=== PATIENT | male | born 1935 | race Caucasian/White ===

== ENCOUNTER 2016-12-17 15:52 | Inpatient (IN) | payer MEDICARE ==
[~2016-12-17] VITALS: Ht 170.2 cm; Wt 61.4 kg
[~2016-12-17 15:52] MED LIST: MULT-65 PO; SIMV10 PO
[2016-12-17 16:03] VITALS: BP 114/73; PULSE 117; RESP 16; TEMP 97.6; O2SAT 93
[2016-12-17] MEDS ORDERED: SLOW50TA PO (18:32)
[2016-12-17] MEDS ORDERED: SIMV10TA PO (18:32)
[2016-12-17] MEDS ORDERED: VITA1000 PO (18:32)
[2016-12-17] MEDS ORDERED: SENN1TAB PO (18:32)
[2016-12-17] MEDS ORDERED: AMLO5TAB2 PO (18:32)
[2016-12-17] MEDS ORDERED: MULTTAB67 PO (18:32)
[2016-12-17] MEDS ORDERED: ASPI81TA11 PO (18:32)
[2016-12-17] MEDS ORDERED: SODIUM CHLOR 0.9% 1000 ML INJ 1,000 ML IV SCH (18:42)
[2016-12-17] MEDS ORDERED: SODIUM CHLORIDE 0.9% FLUSH 10 ML FLUSH IV FLUSH PRN ×2 (18:45→23:00)
[2016-12-17] MEDS ORDERED: FAMOTIDINE 20 MG/2 ML VIAL IV PUSH ONE (18:45)
[2016-12-17] MEDS ORDERED: ONDANSETRON HCL 4 MG/2 ML VIAL IVP ONE (18:45)
--- NOTE | 2016-12-17 18:51 | PD ---
HPI Chief Complaint: GI Complaint Time Seen by Provider: 18:02 Travel History International Travel<30 days: No Contact w/Intl Traveler<30days: No Traveled to known affect area: No History of Present Illness HPI 81-year-old male complains of persistent nausea vomiting. Patient states the symptoms started yesterday. Patient denies abdominal pain. Patient states that he noticed some blood in the vomitus twice today. Patient denies any headache. Patient denies any chest pain or shortness of breath. Patient denies abdominal pain. Patient denies any dysuria or frequency. Patient denies any fever chills. Patient denies any back pain. Patient has history of throat cancer, status post radiation treatment. Patient also has history of abdominal aortic aneurysm repair, cataract surgery, hiatal hernia repair. 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) Diminished Hearing: No Endocrine: No Genitourinary: No Headaches: No Hypertension: Yes Immune Disorder: No Musculoskeletal: Yes Neurologic: No Psychiatric: No Reproductive: No Respiratory: No Immunizations Current: Yes Migraines: No Radiation Therapy: Yes Seizures: No Tetanus Vaccination: > 5 Years Influenza Vaccination: No Past Surgical History Abdominal Surgery: Yes (aaa hernia) AICD: No Arteriovenous Shunt: No Cardiac Surgery: No Ear Surgery: Yes (MELANOMA ON EAR) Endocrine Surgery: No Eye Surgery: Yes (cataracts) Genitourinary Surgery: Yes (plug in kidney) Gynecologic Surgery: No Insulin Pump: No Joint Replacement: Yes (KNEE) Neurologic Surgery: Yes (CERVICAL BONE SPUR REMOVED) Oral Surgery: No Pacemaker: No Thoracic Surgery: No Other Surgery: Yes (BACK SURGERY, NECK SURGERY hems) Social History Alcohol Use: No Tobacco Use: No (QUIT APR 2015) Substance Use: No Allergies-Medications (Allergen,Severity, Reaction): Coded Allergies: No Known Allergies (Unverified , 12/17/16) Reported Meds & Prescriptions Reported Meds & Active Scripts Active Reported Senna-Plus (Sennosides-Docusate Sodium) 8.6-50 Mg Tab 1 Tab PO DAILY Slow Release Iron ER (Ferrous Sulfate) 168 Mg (50 Mg Iron) Tab 50 Mg PO DAILY Vitamin D-1000 (Cholecalciferol) 1,000 Unit Tab 1,000 Units PO DAILY Aspirin EC (Aspirin) 81 Mg Tabdr 81 Mg PO DAILY Multiple Vitamin 1 Tab 1 Tab PO DAILY Amlodipine (Amlodipine Besylate) 5 Mg Tab 5 Mg PO DAILY Simvastatin 10 Mg Tab 10 Mg PO DAILY Review of Systems General / Constitutional: No: Fever Eyes: No: Visual changes HENT: No: Headaches Cardiovascular: No: Chest Pain or Discomfort Respiratory: No: Shortness of Breath Gastrointestinal: Positive: Nausea, Vomiting, No: Abdominal Pain Genitourinary: No: Dysuria Musculoskeletal: No: Pain Skin: No Rash Neurologic: No: Weakness Psychiatric: No: Depression Endocrine: No: Polydipsia Hematologic/Lymphatic: No: Easy Bruising Physical Exam Narrative GENERAL: Well-nourished, well-developed patient. SKIN: Focused skin assessment warm/dry. HEAD: Normocephalic. EYES: No scleral icterus. No injection or drainage. NECK: Supple, trachea midline. No JVD or lymphadenopathy. CARDIOVASCULAR: Regular rate and rhythm without murmurs, gallops, or rubs. RESPIRATORY: Breath sounds equal bilaterally. No accessory muscle use. GASTROINTESTINAL: Abdomen soft, non-tender, nondistended. MUSCULOSKELETAL: No cyanosis, or edema. BACK: Nontender without obvious deformity. No CVA tenderness. Neurologic exam: Patient is awake alert oriented 3. No obvious focal neurological deficit. Data Data Last Documented VS Vital Signs Date Time Temp Pulse Resp B/P (MAP) Pulse Ox O2 Delivery O2 Flow Rate FiO2 12/17/16 19:25 77 16 128/67 (87) 95 Room Air 12/17/16 16:03 97.6 Orders Orders Complete Blood Count With Diff (12/17/16 18:42) Comprehensive Metabolic Panel (12/17/16 18:42) Lipase (12/17/16 18:42) Prothrombin Time / Inr (Pt) (12/17/16 18:42) Act Partial Throm Time (Ptt) (12/17/16 18:42) Urinalysis - C+S If Indicated (12/17/16 18:42) Iv Access Insert/Monitor (12/17/16 18:42) Ecg Monitoring (12/17/16 18:42) Oximetry (10/18/17 18:42) Ondansetron Inj (Zofran Inj) (12/17/16 18:45) Sodium Chlor 0.9% 1000 Ml Inj (Ns 1000 M (12/17/16 18:42) Sodium Chloride 0.9% Flush (Ns Flush) (12/17/16 18:45) Electrocardiogram (12/17/16 18:42) Famotidine Inj (Pepcid Inj) (12/17/16 18:45) Sodium Chlor 0.9% 1000 Ml Inj (Ns 1000 M (12/17/16 20:45) Ct Abd/Pel W/O Iv Contrast (12/17/16 20:55) Urine Culture (12/17/16 21:10) Ceftriaxone Inj (Rocephin Inj) (12/17/16 22:00) Labs Laboratory Tests Test 12/17/16 18:10 12/17/16 21:10 White Blood Count 11.3 TH/MM3 Red Blood Count 4.21 MIL/MM3 Hemoglobin 11.7 GM/DL Hematocrit 35.9 % Mean Corpuscular Volume 85.1 FL Mean Corpuscular Hemoglobin 27.7 PG Mean Corpuscular Hemoglobin Concent 32.5 % Red Cell Distribution Width 14.2 % Platelet Count 335 TH/MM3 Mean Platelet Volume 8.3 FL Neutrophils (%) (Auto) 81.6 % Lymphocytes (%) (Auto) 11.5 % Monocytes (%) (Auto) 6.3 % Eosinophils (%) (Auto) 0.4 % Basophils (%) (Auto) 0.2 % Neutrophils # (Auto) 9.3 TH/MM3 Lymphocytes # (Auto) 1.3 TH/MM3 Monocytes # (Auto) 0.7 TH/MM3 Eosinophils # (Auto) 0.0 TH/MM3 Basophils # (Auto) 0.0 TH/MM3 CBC Comment DIFF FINAL Differential Comment Prothrombin Time 10.3 SEC Prothromb Time International Ratio 0.9 RATIO Activated Partial Thromboplast Time 25.5 SEC Blood Urea Nitrogen 24 MG/DL Creatinine 1.70 MG/DL Random Glucose 117 MG/DL Total Protein 8.6 GM/DL Albumin 3.2 GM/DL Calcium Level 12.6 MG/DL Alkaline Phosphatase 113 U/L Aspartate Amino Transf (AST/SGOT) 17 U/L Alanine Aminotransferase (ALT/SGPT) 18 U/L Total Bilirubin 0.4 MG/DL Sodium Level 138 MEQ/L Potassium Level 3.7 MEQ/L Chloride Level 97 MEQ/L Carbon Dioxide Level 32.0 MEQ/L Anion Gap 9 MEQ/L Estimat Glomerular Filtration Rate 39 ML/MIN Protein Corrected Calcium 11.6 MG/DL Lipase 75 U/L Urine Color YELLOW Urine Turbidity SLIGHT Urine pH 7.0 Urine Specific [place] 1.016 Urine Protein NEG mg/dL Urine Glucose (UA) NEG mg/dL Urine Ketones NEG mg/dL Urine Occult Blood NEG Urine Nitrite POS Urine Bilirubin NEG Urine Leukocyte Esterase MOD Urine RBC 0-3 /hpf Urine WBC 15-19 /hpf Urine WBC Clumps RARE Urine Squamous Epithelial Cells 0-5 /hpf Urine Bacteria MOD /hpf Microscopic Urinalysis Comment CULTURE INDICATED MDM Medical Decision Making Medical Screen Exam Complete: Yes Emergency Medical Condition: Yes Interpretation(s) 9:53 PM. CBC WBC 11.3. Hemoglobin 11.7 hematocrit 35.9. 81 neutrophil. BUN 24. Creatinine 1.7. GFR 39. Protein corrected calcium 11.6. UA positive for WBC and bacteria. 22:[address] scan abdomen and pelvis shows right lower lobe consolidation. No acute pathology in the abdomen. Differential Diagnosis Differential diagnosis including gastroenteritis, gastritis, PUD, pancreatitis, cholecystitis, colitis, UTI, pyelonephritis, nephrolithiasis, electrolyte imbalance, dehydration. Narrative Course 81-year-old male with persistent nausea vomiting for 2 days. Small amount of hematemesis emesis today. Normal saline solution 1 L IV bolus. Zofran 4 mg IV. Pepcid 20 mg IV. Rocephin 1 g IV. Zithromax 500 mg IV. Diagnosis Primary Impression: Pneumonia Qualified Codes: J18.1 - Lobar pneumonia, unspecified organism Additional Impressions: Acute kidney injury Hypercalcemia UTI (urinary tract infection) Qualified Codes: N30.00 - Acute cystitis without hematuria Admitting Information Admitting Physician Requests: Admit Matthew Monroe MD Dec 17, 2016 18:51
[2016-12-17 19:00] VITALS: O2SAT 95
[2016-12-17 19:12] LABS: AUTOMATED NEUTROPHIL # 9.3 TH/MM3 (1.8-7.7); BASOPHIL % 0.2 % (0.0-2.0); EOSINOPHIL % 0.4 % (0.0-4.0); HEMATOCRIT 35.9 % (39.0-51.0); HEMOGLOBIN 11.7 GM/DL (13.0-17.0); LYMPH % 11.5 % (9.0-44.0); LYMPHOCYTE # 1.3 TH/MM3 (1.0-4.8); MEAN CELL VOLUME 85.1 FL (80.0-100.0); MEAN CORPUSCULAR HEMOGLOBIN 27.7 PG (27.0-34.0); MEAN CORPUSCULAR HGB CONC 32.5 % (32.0-36.0); MEAN PLATELET VOLUME 8.3 FL (7.0-11.0); MONO % 6.3 % (0.0-8.0); MONOCYTE # 0.7 TH/MM3 (0-0.9); NEUT % 81.6 % (16.0-70.0); PLATELET COUNT 335 TH/MM3 (150-450); RED BLOOD COUNT 4.21 MIL/MM3 (4.50-5.90); RED CELL DISTRIBUTION WIDTH 14.2 % (11.6-17.2); WHITE BLOOD COUNT 11.3 TH/MM3 (4.0-11.0)
[2016-12-17 19:25] VITALS: BP 128/67; PULSE 77; RESP 16; O2SAT 95
[2016-12-17 20:11] LABS: INTERNATIONAL NORMALIZED RATIO 0.9 RATIO; PROTHROMBIN TIME - PATIENT 10.3 SEC (9.8-11.6)
[2016-12-17 20:25] VITALS: BP 129/74; PULSE 76; RESP 16; O2SAT 95
[2016-12-17 20:38] LABS: ALBUMIN 3.2 GM/DL (3.4-5.0); CREATININE 1.7 MG/DL (0.60-1.30); TOTAL BILIRUBIN ADULT 0.4 MG/DL (0.2-1.0); TOTAL PROTEIN 8.6 GM/DL (6.4-8.2)
[2016-12-17 20:41] LABS: CALCIUM-PROTEIN CORRECTED 11.6 MG/DL (8.5-10.1)
[2016-12-17 20:42] LABS: CALCIUM 12.6 MG/DL (8.5-10.1)
[2016-12-17] MEDS: SODIUM CHLOR 0.9% 1000 ML INJ 1,000 ML IV SCH (21:16)
[2016-12-17 21:35] LABS: BILIRUBIN, URINE NEG (NEG); BLOOD, URINE NEG (NEG); GLUCOSE,URINE NEG (NEG); KETONE, URINE NEG (NEG); NITRITE,URINE POS (NEG); URINE LEUKOCYTE ESTERASE MOD (NEG)
[2016-12-17 21:44] LABS: URINE COLOR YELLOW (YELLW/STRAW)
[2016-12-17 21:45] LABS: BACTERIA, URINE MOD /hpf; RBC, URINE 0-3 /hpf (0-3); SQUAMOUS EPITHELIAL CELL URINE 0-5 /hpf (0-5); WBC, URINE 15-19 /hpf (0-5); WHITE BLOOD CELL CLUMPS RARE
[2016-12-17] MEDS ORDERED: cefTRIAXone INJ 1,000 MG in SODIUM CHLORIDE 0.9% INJ 100 ML IV ONE (22:00)
--- NOTE | 2016-12-17 22:06 | RADRPT ---
EXAM DATE/TIME: 12/17/2016 21:28 [facility] COMPARISON: CT ABDOMEN & PELVIS W/O CONTRAST, July 17, 2015, 19:28. INDICATIONS : Abdominal pain, vomiting. ORAL CONTRAST: No oral contrast ingested. RADIATION DOSE: 8.35 CTDIvol (mGy) MEDICAL HISTORY : Hypertension. Aneurysm, abdominal. Hernia. SURGICAL HISTORY : Abdominal aortic aneurysm repair. Hernia repair. ENCOUNTER: Initial ACUITY: 1 day PAIN SCALE: 5/10 LOCATION: abdomen TECHNIQUE: Volumetric scanning of the abdomen and pelvis was performed. Using automated exposure control and ad justment of the mA and/or kV according to patient size, radiation dose was kept as low as reasonably achievable to obtain optimal diagnostic quality images. DICOM format image data is available electro nically for review and comparison. FINDINGS: Significant change relative to the prior examination Z. of endovascular repair of abdominal aortic an eurysm infrarenal extending into the common iliac artery stent placement. Patient also developed a de nse right lower lobe parenchymal infiltrate consolidated. Prior findings of hepatic cysts are again apprec iated with a normal gallbladder spleen and pancreas as well as bilateral kidneys other than stable fl uid density in the left infra-nephric space. 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 Uncomp licated cyst diverticuli of the sigmoid are noted. There is degenerative changes of the lower lumbar spine. CONCLUSION: There is a dense right lower lobe parenchymal consolidated infiltrate. Interrum endovascular stent abdominal aortic repair infrarenal extendi ng into the common iliac arteries. No evidence of leak. Other chronic findings as described above.. Ernesto Ramos MD on December 17, 2016 at 21:58 Board Certified Radiologist. This report was verified electronically.
[2016-12-17 22:45] VITALS: BP 128/68; PULSE 83; RESP 16; O2SAT 96
--- NOTE | 2016-12-17 22:50 | RADRPT ---
EXAM DATE/TIME: 12/17/2016 22:40 [facility] COMPARISON: No previous studies available for comparison. INDICATIONS : Short of breath. MEDICAL HISTORY : Hypertension. Aneurysm, abdominal. Hernia. SURGICAL HISTORY : Abdominal aortic aneurysm repair. Hernia repair. ENCOUNTER: Initial ACUITY: 1 day PAIN SCORE: 0/10 LOCATION: Bilateral chest FINDINGS: The heart, aorta, and pulmonary vascularity normal intact bony structures in clear left lung. There i s dense airspace disease alveolar change in the right lower lobe consistent with infiltrate pneumonia CONCLUSION: Consolidated infiltrate right lower lobe consistent with pneumonitis Ernesto Ramos MD on December 17, 2016 at 22:48 Board Certified Radiologist. This report was verified electronically.
[2016-12-17] MEDS ORDERED: NALOXONE HCL 0.4 MG/ML AMP IV PUSH PRN (23:00)
[2016-12-17 23:45] VITALS: BP 135/74; PULSE 83; RESP 16; TEMP 98.3; O2SAT 87
[2016-12-18] VITALS (8 sets, daily range): BP systolic 108–169; BP diastolic 62–81; PULSE 67–93; RESP 16–18; TEMP 96.3–98.3; O2SAT 94–98
[2016-12-18] MEDS: SODIUM CHLOR 0.9% 1000 ML INJ 1,000 ML IV SCH ×3 (06:12→21:23)
[2016-12-18 07:48] LABS: AUTOMATED NEUTROPHIL # 6.1 TH/MM3 (1.8-7.7); BASOPHIL % 0.3 % (0.0-2.0); EOSINOPHIL # 0.1 TH/MM3 (0-0.4); EOSINOPHIL % 1.6 % (0.0-4.0); HEMATOCRIT 32.2 % (39.0-51.0); HEMOGLOBIN 10.6 GM/DL (13.0-17.0); LYMPHOCYTE # 1.5 TH/MM3 (1.0-4.8); MEAN CORPUSCULAR HGB CONC 32.9 % (32.0-36.0); MEAN PLATELET VOLUME 7.9 FL (7.0-11.0); MONO % 10.6 % (0.0-8.0); MONOCYTE # 0.9 TH/MM3 (0-0.9); NEUT % 69.5 % (16.0-70.0); PLATELET COUNT 267 TH/MM3 (150-450); RED BLOOD COUNT 3.79 MIL/MM3 (4.50-5.90); RED CELL DISTRIBUTION WIDTH 14.4 % (11.6-17.2); WHITE BLOOD COUNT 8.6 TH/MM3 (4.0-11.0)
[2016-12-18 08:11] LABS: BICARBONATE 31.4 MEQ/L (21.0-32.0); CALCIUM 11.4 MG/DL (8.5-10.1); CREATININE 1.4 MG/DL (0.60-1.30)
[2016-12-18] MEDS: SODIUM CHLORIDE 0.9% FLUSH 10 ML FLUSH IV FLUSH SCH ×2 (09:00→21:00)
--- NOTE | 2016-12-18 10:22 | HHI.HP ---
[facility] R[facility] Cavaz[facility] MD Admission Diagnosis PNA and hypercalcemia Diagnoses: Chief Complaint: feeling weak Travel History International Travel<30 Days: No Contact w/Intl Traveler <30 Da: No Traveled to Known Affected Are: No History of Present Illness Poor historian. Does not like to speak much although he seems cognitively intact. 81 y/o WM admitted for PNA. Patient was in his usual state of health presumptively until yesterday at which point his progressive generalized weakness worsened prompting him to come to the emergency room. He has chronic intermittent N/V to which he does not elaborate further but does admit to new onset hematemesis yesterday. Says that he does vomit on a good day, reports that he felt substantially weaker overall yesterday and had noted some mild hematemesis, eventually decided come to the emergency room. Denies having any increased shortness of breath fevers chills. Chest x-ray which I independent only reviewed shows a prominent infiltrate in the right middle lobe which is suggestive of pneumonia. Has hypercalcemia noted. Review of Systems Except as stated in HPI: all other systems reviewed are Neg Unable to obtain review of systems since the patient is not willing to speak much. Past Family Social History Past Medical History Throat cancer, AAA s/p repair w/ stenting Past Surgical History Throat cancer Allergies: Coded Allergies: gabapentin (Verified Allergy, Intermediate, 12/26/16) STATED ALLERY (EXTREME ABD PAIN) Family History Cancer in brother, unspecified, patient does not elaborate Social History Smoking for over 70 years per patient Physical Exam Vital Signs Vital Signs Date Time Temp Pulse Resp B/P (MAP) Pulse Ox O2 Delivery O2 Flow Rate FiO2 12/18/16 08:00 96.6 70 18 143/69 (93) 94 12/18/16 04:00 98.3 85 16 147/67 (93) 95 12/18/16 01:00 67 12/18/16 00:35 12/18/16 00:00 98.0 75 16 108/62 (77) 98 12/17/16 23:45 98.3 83 16 135/74 (94) 87 Room Air 12/17/16 22:45 83 16 128/68 (88) 96 Room Air 12/17/16 20:25 76 16 129/74 (92) 95 Room Air 12/17/16 19:25 77 16 128/67 (87) 95 Room Air 12/17/16 19:00 95 Room Air 12/17/16 16:03 97.6 117 16 114/73 (87) 93 Physical Exam VS: Reviewed, afebrile GENERAL: Elderly white male thin, lying in bed, sleeping, easily awoken SKIN: Warm and dry. EYES: No scleral icterus. No injection or drainage. ENT: No nasal bleeding or discharge. Mucous membranes pink and moist. hoarse voice CARDIOVASCULAR: Regular rate and rhythm. no murmurs RESPIRATORY: No accessory muscle use. Slightly diminished breath sounds bilaterally, very faint crackles on right side, coarse sounds on the left GASTROINTESTINAL: Abdomen soft, non-tender, nondistended. Hepatic and splenic margins not palpable. Extremities: No clubbing, cyanosis, or edema. No obvious deformities. MUSCULOSKELETAL: Extremities without clubbing, cyanosis, or edema. No obvious deformities NEUROLOGICAL: Awake and alert. No obvious cranial nerve deficits. No facial droop nor slurred speech noted. PSYCHIATRIC: Appropriate mood and affect; insight and judgment normal. Laboratory Laboratory Tests Test 12/17/16 18:10 12/17/16 21:10 12/18/16 07:20 White Blood Count 11.3 8.6 Red Blood Count 4.21 3.79 Hemoglobin 11.7 10.6 Hematocrit 35.9 32.2 Mean Corpuscular Volume 85.1 85.0 Mean Corpuscular Hemoglobin 27.7 28.0 Mean Corpuscular Hemoglobin Concent 32.5 32.9 Red Cell Distribution Width 14.2 14.4 Platelet Count 335 267 Mean Platelet Volume 8.3 7.9 Neutrophils (%) (Auto) 81.6 69.5 Lymphocytes (%) (Auto) 11.5 18.0 Monocytes (%) (Auto) 6.3 10.6 Eosinophils (%) (Auto) 0.4 1.6 Basophils (%) (Auto) 0.2 0.3 Neutrophils # (Auto) 9.3 6.1 Lymphocytes # (Auto) 1.3 1.5 Monocytes # (Auto) 0.7 0.9 Eosinophils # (Auto) 0.0 0.1 Basophils # (Auto) 0.0 0.0 CBC Comment DIFF FINAL DIFF FINAL Differential Comment Prothrombin Time 10.3 Prothromb Time International Ratio 0.9 Activated Partial Thromboplast Time 25.5 Blood Urea Nitrogen 24 19 Creatinine 1.70 1.40 Random Glucose 117 79 Total Protein 8.6 Albumin 3.2 Calcium Level 12.6 11.4 Alkaline Phosphatase 113 Aspartate Amino Transf (AST/SGOT) 17 Alanine Aminotransferase (ALT/SGPT) 18 Total Bilirubin 0.4 Sodium Level 138 147 Potassium Level 3.7 3.3 Chloride Level 97 108 Carbon Dioxide Level 32.0 31.4 Anion Gap 9 8 Estimat Glomerular Filtration Rate 39 48 Protein Corrected Calcium 11.6 Lipase 75 Urine Color YELLOW Urine Turbidity SLIGHT Urine pH 7.0 Urine Specific [place] 1.016 Urine Protein NEG Urine Glucose (UA) NEG Urine Ketones NEG Urine Occult Blood NEG Urine Nitrite POS Urine Bilirubin NEG Urine Leukocyte Esterase MOD Urine RBC 0-3 Urine WBC 15-19 Urine WBC Clumps RARE Urine Squamous Epithelial Cells 0-5 Urine Bacteria MOD Microscopic Urinalysis Comment CULTURE INDICATED Date/Time Source Procedure Growth Status 12/17/16 21:10 Urine Clean Catch Urine Culture Pending Received Result Diagram: 12/18/16 0720 12/18/16 07 Imaging I independently reviewed chest x-ray which shows a right sided infiltrate Caprini VTE Risk Assessment Caprini VTE Risk Assessment: Mod/High Risk (score >= 2) VTE Pharm Contraindication: Active bleeding Caprini Risk Assessment Model Point Value = 1 Point Value = 2 Point Value = 3 Point Value = 5 Age 41-60 Minor surgery BMI > 25 kg/m2 Swollen legs Varicose veins or History of unexplained or recurrent spontaneous Oral contraceptives or hormone replacement Sepsis (< 1 month) Serious lung disease, including pneumonia (< 1 month) Abnormal pulmonary function Acute myocardial infarction Congestive heart failure (< 1 month) History of inflammatory bowel disease Medical patient at bed rest Age 61-74 Arthroscopic surgery Major open surgery (> 45 min) Laparoscopic surgery (> 45 min) Malignancy Confined to bed (> 72 hours) Immobilizing plaster cast Central venous access Age >= 75 History of VTE Family history of VTE Factor V Leiden Prothrombin [id number] Lupus anticoagulant Anticardiolipin antibodies Elevated serum homocysteine Heparin-induced thrombocytopenia Other congenital or acquired thrombophilia Stroke (< 1 month) Elective arthroplasty Hip, pelvis, or leg fracture Acute spinal cord injury (< 1 month) Prophylaxis Regimen Total Risk Factor Score Risk Level Prophylaxis Regimen 0-1 Low Early ambulation 2 Moderate Order ONE of the following: *Sequential Compression Device (SCD) *Heparin 5000 units SQ BID 3-4 Higher Order ONE of the following medications: *Heparin 5000 units SQ TID *Enoxaparin/Lovenox 40 mg SQ daily (WT < 150 kg, CrCl > 30 mL/min) *Enoxaparin/Lovenox 30 mg SQ daily (WT < 150 kg, CrCl > 10-29 mL/min) *Enoxaparin/Lovenox 30 mg SQ BID (WT < 150 kg, CrCl > 30 mL/min) AND/OR *Sequential Compression Device (SCD) 5 or more Highest Order ONE of the following medications: *Heparin 5000 units SQ TID (Preferred with Epidurals) *Enoxaparin/Lovenox 40 mg SQ daily (WT < 150 kg, CrCl > 30 mL/min) *Enoxaparin/Lovenox 30 mg SQ daily (WT < 150 kg, CrCl > 10-29 mL/min) *Enoxaparin/Lovenox 30 mg SQ BID (WT < 150 kg, CrCl > 30 mL/min) AND *Sequential Compression Device (SCD) Assessment and Plan Assessment and Plan Patient admitted for pneumonia right middle lobe Right lower lobe pneumonia - community acquired vs aspiration from N/V? Continue Rocephin and Zithromax for now - may consider strep pneumo and legionella antigen if clinically not improved by tomorrow and may swap for zithromax for clindamycin Intermittent Nausea, vomiting - ? caused by PNA - recurrent, treat with IV antiemetics. I independently reviewed the CT film and noted mod stool retention; report shows no acute cause noted otherwise; LFTs unremarkable - IV fluids Hematemesis - suspect Melissa-Tracey tear due to frequent nausea vomiting, consult GI for possible EGD if warranted, patient has been nothing by mouth clinically since last night. starting h2 flakita IV, ppi in short stock. clinically stable at this time. h/h stable at 10 today. cbc in am. DIAZ - 2/2 n/v and dehydration - IVFs, stop fluids if resolved by am BMP Hypercalcemia, corrected seems to accurately reflect this - will obtain PTH and vitamin D - Holding home vitamin D for now until lab results Hypertension - Continue home amlodipine Hyperlipidemia - Continue home simvastatin Iron deficiency - Holding home iron to minimize interference with EGD visualization tomorrow DVT: The score enough to get pharmacotherapy anticoagulation but due to bleed, we'll hold off, continue SCDs until bleed issue is resolved Physician Certification 2 Midnight Certification Type: Admission for Inpatient Services Order for Inpatient Services The services are ordered in accordance with Medicare regulations or non- Medicare payer requirements, as applicable. In the case of services not specified as inpatient-only, they are appropriately provided as inpatient services in accordance with the 2-midnight benchmark. Estimated LOS (days): 2 2 days is the estimated time the patient will need to remain in the hospital, assuming treatment plan goals are met and no additional complications. Post-Hospital Plan: Not yet determined Hunter Meraz MD Dec 18, 2016 10:22
[2016-12-18] MEDS ORDERED: FAMOTIDINE 20 MG/2 ML VIAL IV PUSH SCH (11:00)
--- NOTE | 2016-12-18 11:33 | EKG ---
Date Performed: 12/17/2016 Time Performed: 19:17:07 PTAGE: 81 years EKG: Sinus rhythm NORMAL ECG Compared to prior tracing no significant change PREVIOUS TRACING : 09/21/2012 06.44 DOCTOR: Damon Ridley Interpretating Date/Time 12/18/2016 11:29:02
[2016-12-18] MEDS: AZITHROMYCIN INJ 500 MG in SODIUM CHLOR 0.9% 250 ML INJ 250 ML IV SCH (11:35)
--- NOTE | 2016-12-18 17:45 | MB ---
cc: PHILIPP HICKS MD, RICHARD D. MD DATE OF CONSULTATION 12/18/[address] Riki Cavazos REASON FOR CONSULTATION Nausea, vomiting, anemia, possible hematemesis. HISTORY OF PRESENT ILLNESS Mr. Jordan is an 81-year-old gentleman I basically admitted with progressive weakness, lethargy, some nausea, vomiting. He was found to have pneumonia on admission. GI service has been consulted for workup of hematemesis and nausea and vomiting. Most of the history is obtained from his at the bedside. He has had no nausea, vomiting or hematemesis since hospital admission. His labs are relatively stable. He denies any previous history of GI related issues. Last colonoscopy was reported about 10 years ago. PAST MEDICAL HISTORY 1. History of throat cancer, 2. Aortic aneurysm with repair and stent placement. PAST SURGICAL HISTORY 1. Throat cancer, 2. Colonoscopy 10 years ago. Never had an EGD in the past. ALLERGIES None documented FAMILY HISTORY Nonspecific SOCIAL HISTORY The patient is a smoker for over 70 years. PHYSICAL EXAMINATION GENERAL: A well-nourished man in no apparent distress. VITAL SIGNS: Stable. HEAD/NECK: Anicteric sclerae. CHEST: Bilateral air entry with rales. ABDOMEN: Soft, nontender. No hepatosplenomegaly. Bowel sounds are present. ACID POLYMERIZATION OPERATOR: Exam is nonfocal. RECTAL: Deferred at this time LABORATORY DATA Creatinine of 1.4. Liver functions are normal. INR 0.9, hemoglobin 10.6. IMAGING STUDIES CT of the abdomen and pelvis reveals right lower lobe pneumonia, previous evidence of aortic aneurysm surgery. IMPRESSION Nausea, vomiting, hematemesis. RECOMMENDATIONS Liquid diet tonight, n.p.o. after midnight. Continue antibiotics as ordered. Pepcid 10 mg b.i.d. as ordered. EGD is planned for tomorrow morning. This has been discussed with the patient's and the nurse. Thank you for this referral. MD RODNEY Hayden/ /5:28 PM /5:32 PM
--- NOTE | 2016-12-18 17:45 | MB ---
cc: PHILIPP HICKS MD, RICHARD D. MD DATE OF CONSULTATION 12/18/[address] Riki Cavazos REASON FOR CONSULTATION Nausea, vomiting, anemia, possible hematemesis. HISTORY OF PRESENT ILLNESS Mr. Jordan is an 81-year-old gentleman I basically admitted with progressive weakness, lethargy, some nausea, vomiting. He was found to have pneumonia on admission. GI service has been consulted for workup of hematemesis and nausea and vomiting. Most of the history is obtained from his at the bedside. He has had no nausea, vomiting or hematemesis since hospital admission. His labs are relatively stable. He denies any previous history of GI related issues. Last colonoscopy was reported about 10 years ago. PAST MEDICAL HISTORY 1. History of throat cancer, 2. Aortic aneurysm with repair and stent placement. PAST SURGICAL HISTORY 1. Throat cancer, 2. Colonoscopy 10 years ago. Never had an EGD in the past. ALLERGIES None documented FAMILY HISTORY Nonspecific SOCIAL HISTORY The patient is a smoker for over 70 years. PHYSICAL EXAMINATION GENERAL: A well-nourished man in no apparent distress. VITAL SIGNS: Stable. HEAD/NECK: Anicteric sclerae. CHEST: Bilateral air entry with rales. ABDOMEN: Soft, nontender. No hepatosplenomegaly. Bowel sounds are present. VICE PRESIDENT OF COMPLIANCE: Exam is nonfocal. RECTAL: Deferred at this time LABORATORY DATA Creatinine of 1.4. Liver functions are normal. INR 0.9, hemoglobin 10.6. IMAGING STUDIES CT of the abdomen and pelvis reveals right lower lobe pneumonia, previous evidence of aortic aneurysm surgery. IMPRESSION Nausea, vomiting, hematemesis. RECOMMENDATIONS Liquid diet tonight, n.p.o. after midnight. Continue antibiotics as ordered. Pepcid 10 mg b.i.d. as ordered. EGD is planned for tomorrow morning. This has been discussed with the patient's and the nurse. Thank you for this referral. MD RODNEY Hayden/ /5:28 PM /5:32 PM
[2016-12-18] MEDS: MULTIVITAMIN TAB PO SCH (18:30)
[2016-12-18] MEDS ORDERED: cefTRIAXone INJ 1,000 MG in SODIUM CHLORIDE 0.9% INJ 100 ML IV ONE (22:00)
[2016-12-18] MEDS: FAMOTIDINE 20 MG/2 ML VIAL IV PUSH SCH (23:14)
[2016-12-19] VITALS: BP 182/88; PULSE 97; RESP 18; TEMP 97.9; O2SAT 95
[2016-12-19 05:53] LABS: AUTOMATED NEUTROPHIL # 6.2 TH/MM3 (1.8-7.7); BASOPHIL % 0.3 % (0.0-2.0); EOSINOPHIL # 0.1 TH/MM3 (0-0.4); HEMOGLOBIN 10.7 GM/DL (13.0-17.0); LYMPH % 19.6 % (9.0-44.0); LYMPHOCYTE # 1.7 TH/MM3 (1.0-4.8); MEAN CELL VOLUME 84.8 FL (80.0-100.0); MEAN CORPUSCULAR HEMOGLOBIN 27.6 PG (27.0-34.0); MEAN CORPUSCULAR HGB CONC 32.5 % (32.0-36.0); MEAN PLATELET VOLUME 7.9 FL (7.0-11.0); MONO % 10.4 % (0.0-8.0); MONOCYTE # 0.9 TH/MM3 (0-0.9); NEUT % 68.7 % (16.0-70.0); PLATELET COUNT 265 TH/MM3 (150-450); RED BLOOD COUNT 3.89 MIL/MM3 (4.50-5.90); RED CELL DISTRIBUTION WIDTH 14.4 % (11.6-17.2); WHITE BLOOD COUNT 8.9 TH/MM3 (4.0-11.0)
[2016-12-19 05:54] LABS: BICARBONATE 28.7 MEQ/L (21.0-32.0); CALCIUM 11.4 MG/DL (8.5-10.1); CREATININE 1.3 MG/DL (0.60-1.30)
[2016-12-19] MEDS: POTASSIUM CHLOR 20 MEQ PREMIX 100 ML IV SCH ×3 (06:22→10:27)
[2016-12-19 08:00] VITALS: BP 161/99; RESP 18; TEMP 96.9
[2016-12-19] MEDS: SODIUM CHLORIDE 0.9% FLUSH 10 ML FLUSH IV FLUSH SCH ×2 (08:39→21:00)
[2016-12-19] MEDS ORDERED: cefTRIAXone INJ 1,000 MG in SODIUM CHLORIDE 0.9% INJ 100 ML IV SCH (09:00)
[2016-12-19] MEDS: FAMOTIDINE 20 MG/2 ML VIAL IV PUSH SCH ×2 (10:26→23:30)
[2016-12-19 12:00] VITALS: BP 152/80; PULSE 91; RESP 20; TEMP 97.1; O2SAT 97
--- NOTE | 2016-12-19 13:00 | HHI.PR ---
Subjective Remarks Due to patient's dementia he is not a reliable historian. Patient was slightly agitated this morning trying to get out of bed., Now that his is at bedside. Patient has not had any further vomiting since being in the hospital. Prior that his states that he was vomiting for 5 days straight. She denies cough or fever. Objective Vitals Vital Signs Date Time Temp Pulse Resp B/P (MAP) Pulse Ox O2 Delivery O2 Flow Rate FiO2 12/19/16 08:00 96.9 18 161/99 (119) 12/19/16 00:00 97.9 97 18 182/88 (119) 95 12/18/16 20:00 96.3 93 18 136/68 (90) 96 12/18/16 20:00 86 12/18/16 16:00 97.8 86 18 140/81 (100) 95 12/18/16 13:23 75 I/O 12/18/16 12/18/16 12/18/16 12/19/16 12/19/16 12/19/16 07:00 15:00 23:00 07:00 15:00 23:00 Intake Total 598 ml 360 ml 480 ml Output Total 400 ml 2300 ml Balance 198 ml -1940 ml 480 ml Intake Oral 360 ml 480 ml IV Total 598 ml Output Urine Total 400 ml 2300 ml # Voids 3 2 # Bowel Movements 0 0 Result Diagram: 12/19/1651412/19/16514 Objective Remarks GENERAL: Well-nourished, well-developed elderly male patient. Pleasantly confused. SKIN: Warm and dry. HEAD: Normocephalic. EYES: No scleral icterus. No injection or drainage. NECK: Supple, trachea midline. No JVD or lymphadenopathy. CARDIOVASCULAR: Regular rate and rhythm without murmurs, gallops, or rubs. RESPIRATORY: Breath sounds equal bilaterally. No accessory muscle use. GASTROINTESTINAL: Abdomen soft, non-tender, nondistended. EXTREMITIES: No cyanosis, or edema. NEUROLOGICAL: Awake, alert, and oriented to self. Non-focal. A/P Problem List: (1) Pneumonia ICD Code: J18.9 - Pneumonia, unspecified organism Status: Acute (2) Hematemesis ICD Code: K92.0 - Hematemesis (3) Intractable nausea and vomiting ICD Code: R11.2 - Nausea with vomiting, unspecified (4) Hypokalemia ICD Code: E87.6 - Hypokalemia (5) Acute kidney injury ICD Code: N17.9 - Acute kidney failure, unspecified Status: Acute (6) UTI (urinary tract infection) ICD Code: N39.0 - Urinary tract infection, site not specified Status: Acute (7) Hypercalcemia ICD Code: E83.52 - Hypercalcemia Status: Acute Assessment and Plan -Intractable nausea and vomiting, followed by hematemesis. Hemoglobin was slight downturn from 11-10.. Etiology of the nausea and vomiting not clear. He may have developed a Melissa-Tracey tear. Gastroenterology is consulted and plans for EGD today. Vomiting has resolved. -Right lower lobe dense consolidation, community-acquired pneumonia. Continue Rocephin and Zithromax. He is stable on room air, but at risk for decompensation given his advanced age, dementia, multiple medical comorbidities.. -Severe hypercalcemia - likely exacerbated by volume depletion. Continue gentle IV fluids normal saline at 60 mL per hour. Follow-up PTH and PTH related peptide. Follow BMP. -Acute kidney injury, resolved. -Severe hypokalemia. Replete in IV 40 mEq over 4 hours today. Check magnesium level. Repeat BMP in the morning. -Hypertension. Continue Norvasc. 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 -Dementia. Continue reorientation. -UTI, continue Rocephin and follow up urine culture. -DVT prophylaxis SCDs. Patient requires inpatient treatment due to ongoing electrolyte abnormalities requiring IV fluid and IV replacement, workup for hematemesis to include EGD which cannot be safely done in the outpatient setting given his intractable vomiting, also treatment of community-acquired pneumonia with high risk of decompensation in this elderly patient with multiple medical comorbidities. Discussed with patient's at bedside. Problem Qualifiers (1) Pneumonia: Qualified Codes: J18.1 - Lobar pneumonia, unspecified organism (2) UTI (urinary tract infection): Qualified Codes: N30.00 - Acute cystitis without hematuria Laura Gomez MD Dec 19, 2016 13:00
[2016-12-19] MEDS ORDERED: PROPOFOL 200 MG/20 ML AMP IV PUSH ONE (13:48)
--- NOTE | 2016-12-19 13:49 | GIPROC ---
[facility] [address] [place] [address], [id number] EGD PROCEDURE REPORT EXAM DATE: 12/19/2016 PATIENT NAME: Joseph Jordan MR #: [id number] BIRTHDATE: 1935 ATTENDING: Maya Su MD ORDER #: [id number] ACCOUNT RESOLUTION ANALYST: Samia Leyva and [place] STATUS: inpatient INDICATIONS: The patient is a 81 yr old male here for an EGD due to nausea, vomiting , hematemesis PROCEDURE PERFORMED: EGD w/ biopsy MEDICATIONS: None and Per Anesthesia. TOPICAL ANESTHETIC: none CONSENT: The patient understands the risks and benefits of the procedure and understands that these risks include, but are not limited to: sedation, allergic reaction, infection, perforation and/or bleeding. Alternative means of evaluation and treatment include, among others: physical exam, x-rays, and/or surgical intervention. The patient elects to proceed with this endoscopic procedure. medical equipment was checked for proper function. Hand hygiene and appropriate measures for infection prevention was taken. After the risks, benefits and alternatives of the procedure were thoroughly explained, Informed consent was verified, confirmed and timeout was successfully executed by the treatment team. The patient was anesthetized with topical anesthesia and the Pentax EG-[id number] endoscope was introduced through the mouth and advanced to the second portion of the duodenum. Retroflexed views revealed a hiatal hernia The gastroscope was then slowly withdrawn and removed. Duodenitis second portion-biopsy gastritis antrum-biopsy esophagitis distal esophagus -biopsy. ADVERSE EVENTS: There were no complications. IMPRESSIONS: 1. Duodenitis second portion-biopsy gastritis antrum-biopsy esophagitis distal esophagus -biopsy 2. Retroflexed views revealed a hiatal hernia RECOMMENDATIONS: 1. Await biopsy results. Biopsy results will not be ready for 7-10 days. If you don't hear from us in two weeks, call our office for biopsy results. 2. Anti-reflux regimen 3. Continue PPI 4. Full liquid diet PATIENT CONDITION: stable DISPOSITION: Inpatient REPEAT EXAM: Return 1 year EGD Maya Su MD eSigned: Maya Su MD 12/19/2016 1:49 PM cc:
--- NOTE | 2016-12-19 13:49 | GIPROC ---
[facility] [address] [place] [address], [id number] EGD PROCEDURE REPORT EXAM DATE: 12/19/2016 PATIENT NAME: Joseph Jordan MR #: [id number] BIRTHDATE: 1935 ATTENDING: Maya Su MD ORDER #: [id number] FLIGHT OPERATION COORDINATOR: Samia Leyva and [place] STATUS: inpatient INDICATIONS: The patient is a 81 yr old male here for an EGD due to nausea, vomiting , hematemesis PROCEDURE PERFORMED: EGD w/ biopsy MEDICATIONS: None and Per Anesthesia. TOPICAL ANESTHETIC: none CONSENT: The patient understands the risks and benefits of the procedure and understands that these risks include, but are not limited to: sedation, allergic reaction, infection, perforation and/or bleeding. Alternative means of evaluation and treatment include, among others: physical exam, x-rays, and/or surgical intervention. The patient elects to proceed with this endoscopic procedure. medical equipment was checked for proper function. Hand hygiene and appropriate measures for infection prevention was taken. After the risks, benefits and alternatives of the procedure were thoroughly explained, Informed consent was verified, confirmed and timeout was successfully executed by the treatment team. The patient was anesthetized with topical anesthesia and the Pentax EG-[id number] endoscope was introduced through the mouth and advanced to the second portion of the duodenum. Retroflexed views revealed a hiatal hernia The gastroscope was then slowly withdrawn and removed. Duodenitis second portion-biopsy gastritis antrum-biopsy esophagitis distal esophagus -biopsy. ADVERSE EVENTS: There were no complications. IMPRESSIONS: 1. Duodenitis second portion-biopsy gastritis antrum-biopsy esophagitis distal esophagus -biopsy 2. Retroflexed views revealed a hiatal hernia RECOMMENDATIONS: 1. Await biopsy results. Biopsy results will not be ready for 7-10 days. If you don't hear from us in two weeks, call our office for biopsy results. 2. Anti-reflux regimen 3. Continue PPI 4. Full liquid diet PATIENT CONDITION: stable DISPOSITION: Inpatient REPEAT EXAM: Return 1 year EGD Maya Su MD eSigned: Maya Su MD 12/19/2016 1:49 PM cc:
--- NOTE | 2016-12-19 13:49 | GIPROC ---
[facility] [address] [place] [address], [id number] EGD PROCEDURE REPORT EXAM DATE: 12/19/2016 PATIENT NAME: Joseph Jordan MR #: [id number] BIRTHDATE: 1935 ATTENDING: Maya Su MD ORDER #: [id number] INTEGRATION ARCHITECT: Samia Leyva and [place] STATUS: inpatient INDICATIONS: The patient is a 81 yr old male here for an EGD due to nausea, vomiting , hematemesis PROCEDURE PERFORMED: EGD w/ biopsy MEDICATIONS: None and Per Anesthesia. TOPICAL ANESTHETIC: none CONSENT: The patient understands the risks and benefits of the procedure and understands that these risks include, but are not limited to: sedation, allergic reaction, infection, perforation and/or bleeding. Alternative means of evaluation and treatment include, among others: physical exam, x-rays, and/or surgical intervention. The patient elects to proceed with this endoscopic procedure. medical equipment was checked for proper function. Hand hygiene and appropriate measures for infection prevention was taken. After the risks, benefits and alternatives of the procedure were thoroughly explained, Informed consent was verified, confirmed and timeout was successfully executed by the treatment team. The patient was anesthetized with topical anesthesia and the Pentax EG-[id number] endoscope was introduced through the mouth and advanced to the second portion of the duodenum. Retroflexed views revealed a hiatal hernia The gastroscope was then slowly withdrawn and removed. Duodenitis second portion-biopsy gastritis antrum-biopsy esophagitis distal esophagus -biopsy. ADVERSE EVENTS: There were no complications. IMPRESSIONS: 1. Duodenitis second portion-biopsy gastritis antrum-biopsy esophagitis distal esophagus -biopsy 2. Retroflexed views revealed a hiatal hernia RECOMMENDATIONS: 1. Await biopsy results. Biopsy results will not be ready for 7-10 days. If you don't hear from us in two weeks, call our office for biopsy results. 2. Anti-reflux regimen 3. Continue PPI 4. Full liquid diet PATIENT CONDITION: stable DISPOSITION: Inpatient REPEAT EXAM: Return 1 year EGD Maya Su MD eSigned: Maya Su MD 12/19/2016 1:49 PM cc:
[2016-12-19] MEDS: AZITHROMYCIN INJ 500 MG in SODIUM CHLOR 0.9% 250 ML INJ 250 ML IV SCH (15:07)
[2016-12-19 16:00] VITALS: BP 166/98; PULSE 20; RESP 20; TEMP 96.5; O2SAT 96
[2016-12-19 20:00] VITALS: BP 127/83; PULSE 94; RESP 20; TEMP 96.3; O2SAT 95
[2016-12-19] MEDS: cefTRIAXone INJ 1,000 MG in SODIUM CHLORIDE 0.9% INJ 100 ML IV SCH (21:34)
[2016-12-19] MEDS ORDERED: BISACODYL 10 MG SUPP RECTAL ONE (23:15)
[2016-12-19] MEDS: DOCUSATE SODIUM 100 MG CAP PO SCH (23:31)
[2016-12-19 23:48] VITALS: BP 140/80; PULSE 100; RESP 23; TEMP 98.2; O2SAT 94
[2016-12-20 07:46] LABS: BASOPHIL % 0.1 % (0.0-2.0); EOSINOPHIL # 0.1 TH/MM3 (0-0.4); EOSINOPHIL % 0.6 % (0.0-4.0); HEMATOCRIT 32.3 % (39.0-51.0); HEMOGLOBIN 10.7 GM/DL (13.0-17.0); LYMPH % 13.1 % (9.0-44.0); LYMPHOCYTE # 1.4 TH/MM3 (1.0-4.8); MEAN CELL VOLUME 85.9 FL (80.0-100.0); MEAN CORPUSCULAR HEMOGLOBIN 28.5 PG (27.0-34.0); MEAN CORPUSCULAR HGB CONC 33.2 % (32.0-36.0); MEAN PLATELET VOLUME 8.3 FL (7.0-11.0); MONO % 9.1 % (0.0-8.0); NEUT % 77.1 % (16.0-70.0); PLATELET COUNT 259 TH/MM3 (150-450); RED BLOOD COUNT 3.76 MIL/MM3 (4.50-5.90); RED CELL DISTRIBUTION WIDTH 14.9 % (11.6-17.2); WHITE BLOOD COUNT 10.5 TH/MM3 (4.0-11.0)
[2016-12-20 07:57] LABS: BICARBONATE 26.8 MEQ/L (21.0-32.0); CALCIUM 11.4 MG/DL (8.5-10.1); MAGNESIUM 1.7 MG/DL (1.5-2.5)
[2016-12-20 08:00] VITALS: BP 179/96; PULSE 98; RESP 20; TEMP 97.4; O2SAT 97
[2016-12-20 08:01] LABS: CREATININE 1.1 MG/DL (0.60-1.30)
[2016-12-20] MEDS: amLODIPine BESYLATE 5 MG TAB PO SCH (09:00)
[2016-12-20] MEDS: PRAVASTATIN SOD 20 MG TAB PO SCH (09:00)
[2016-12-20] MEDS: MULTIVITAMIN TAB PO SCH (09:00)
[2016-12-20] MEDS: SODIUM CHLORIDE 0.9% FLUSH 10 ML FLUSH IV FLUSH SCH (09:00)
[2016-12-20] MEDS: DOCUSATE SODIUM 100 MG CAP PO SCH (09:00)
[2016-12-20] MEDS ORDERED: POTASSIUM CHLORIDE 25 MEQ EFFERVESCENT TAB PO ONE (11:10)
[2016-12-20] MEDS: AZITHROMYCIN INJ 500 MG in SODIUM CHLOR 0.9% 250 ML INJ 250 ML IV SCH (11:49)
[2016-12-20] MEDS: FAMOTIDINE 20 MG/2 ML VIAL IV PUSH SCH ×2 (11:50→22:52)
[2016-12-20 12:00] VITALS: BP 163/85; PULSE 103; RESP 18; TEMP 98.7; O2SAT 95
--- NOTE | 2016-12-20 12:05 | HHI.GIFU ---
Subjective Remarks comfortable in bed no new complaints denies any N/V pain Objective Vitals I&O Vital Signs Date Time Temp Pulse Resp B/P (MAP) Pulse Ox O2 Delivery O2 Flow Rate FiO2 12/20/16 08:00 97.4 98 20 179/96 (123) 97 12/19/16 23:48 98.2 100 23 140/80 (100) 94 12/19/16 20:00 96.3 94 20 127/83 (98) 95 12/19/16 16:00 96.5 20 20 166/98 (120) 96 12/19/16 14:15 152/81 (104) 100 12/19/16 14:05 99 15 152/87 (108) 100 12/19/16 13:55 98.1 99 14 155/80 (105) 100 12/19/16 12:30 97.2 95 20 166/99 (121) 97 I/O 12/19/16 12/19/16 12/19/16 12/20/16 12/20/16 12/20/16 07:00 15:00 23:00 07:00 15:00 23:00 Intake Total 480 ml 700 ml Output Total 2 ml Balance 480 ml 700 ml -2 ml Intake Oral 480 ml 400 ml IV Total 200 ml Other 100 ml Output Urine Total 2 ml # Voids 2 3 5 # Bowel Movements 0 1 1 2 Laboratory Laboratory Tests Test 12/20/16 06:45 White Blood Count 10.5 Red Blood Count 3.76 Hemoglobin 10.7 Hematocrit 32.3 Mean Corpuscular Volume 85.9 Mean Corpuscular Hemoglobin 28.5 Mean Corpuscular Hemoglobin Concent 33.2 Red Cell Distribution Width 14.9 Platelet Count 259 Mean Platelet Volume 8.3 Neutrophils (%) (Auto) 77.1 Lymphocytes (%) (Auto) 13.1 Monocytes (%) (Auto) 9.1 Eosinophils (%) (Auto) 0.6 Basophils (%) (Auto) 0.1 Neutrophils # (Auto) 8.0 Lymphocytes # (Auto) 1.4 Monocytes # (Auto) 1.0 Eosinophils # (Auto) 0.1 Basophils # (Auto) 0.0 CBC Comment DIFF FINAL Differential Comment Blood Urea Nitrogen 12 Creatinine 1.10 Random Glucose 101 Calcium Level 11.4 Magnesium Level 1.7 Sodium Level 141 Potassium Level 3.2 Chloride Level 106 Carbon Dioxide Level 26.8 Anion Gap 8 Estimat Glomerular Filtration Rate 64 Date/Time Source Procedure Growth Status 12/17/16 21:10 Urine Clean Catch Urine Culture - Final 50-100,000 CFU/ML MIXED GRAM POSITIVE... Complete Imaging Last Impressions Chest X-Ray 12/17/162236 Signed Impressions: Service Date/Time: Saturday, December 17, 2016 22:40 - CONCLUSION: Consolidated infiltrate right lower lobe consistent with pneumonitis Ernesto Ramos MD Abdomen/Pelvis CT 12/17/162054 Signed Impressions: Service Date/Time: Saturday, December 17, 2016 21:28 - CONCLUSION: There is a dense right lower lobe parenchymal consolidated infiltrate. Interrum endovascular stent abdominal aortic repair infrarenal extending into the common iliac arteries. No evidence of leak. Other chronic findings as described above.. Ernesto Ramos MD Physical Exam HEENT: normocephalic; atraumatic; no jaundice. Throat is clear. NECK: Neck is supple CHEST: Chest is clear to auscultation and percussion. CARDIAC: Regular rate and rhythm with no murmur gallop or rubs. ABDOMEN: Soft, nondistended, nontender; no hepatosplenomegaly; bowel sounds are present in all four quadrants. EXTREMITIES: No clubbing, cyanosis, or edema. SKIN: Normal; no rash; no jaundice. MARKETING SUPPORT ASSISTANT: No focal deficits; alert Assessment and Plan Plan N/V,hematemesisresolved on EGD esophagitis,gastritis, and duodenitis cont PPI avoid NSAIDs and ASA advance diet as tolerated f/u with GI post DC we will sign off Matthew Plata MD Dec 20, 2016 12:05
--- NOTE | 2016-12-20 12:38 | HHI.PR ---
Subjective Remarks The patient was agitated this morning, trying to get out of bed and demanding that his ,. Patient's is not bedside and the patient is calm and cooperative. Patient states he feels "lousy." Denies dyspnea or cough. Status post EGD yesterday. He is tolerating liquid diet. Objective Vitals Vital Signs Date Time Temp Pulse Resp B/P (MAP) Pulse Ox O2 Delivery O2 Flow Rate FiO2 12/20/16 12:00 98.7 103 18 163/85 (111) 95 12/20/16 08:00 97.4 98 20 179/96 (123) 97 12/19/16 23:48 98.2 100 23 140/80 (100) 94 12/19/16 20:00 96.3 94 20 127/83 (98) 95 12/19/16 16:00 96.5 20 20 166/98 (120) 96 12/19/16 14:15 152/81 (104) 100 12/19/16 14:05 99 15 152/87 (108) 100 12/19/16 13:55 98.1 99 14 155/80 (105) 100 I/O 12/19/16 12/19/16 12/19/16 12/20/16 12/20/16 12/20/16 07:00 15:00 23:00 07:00 15:00 23:00 Intake Total 480 ml 700 ml Output Total 2 ml Balance 480 ml 700 ml -2 ml Intake Oral 480 ml 400 ml IV Total 200 ml Other 100 ml Output Urine Total 2 ml # Voids 2 3 5 # Bowel Movements 0 1 1 2 Result Diagram: 12/20/16 0645 12/20/16644 Objective Remarks GENERAL: Well-nourished, well-developed elderly male patient. Pleasantly confused. SKIN: Warm and dry. HEAD: Normocephalic. EYES: No scleral icterus. No injection or drainage. NECK: Supple, trachea midline. No JVD or lymphadenopathy. CARDIOVASCULAR: Regular rate and rhythm without murmurs, gallops, or rubs. RESPIRATORY: Breath sounds equal bilaterally. No accessory muscle use. GASTROINTESTINAL: Abdomen soft, non-tender, nondistended. EXTREMITIES: No cyanosis, or edema. NEUROLOGICAL: Awake, alert, and oriented to self. Non-focal. A/P Problem List: (1) Pneumonia ICD Code: J18.9 - Pneumonia, unspecified organism Status: Acute (2) Hematemesis ICD Code: K92.0 - Hematemesis (3) Intractable nausea and vomiting ICD Code: R11.2 - Nausea with vomiting, unspecified (4) Hypokalemia ICD Code: E87.6 - Hypokalemia (5) Acute kidney injury ICD Code: N17.9 - Acute kidney failure, unspecified Status: Acute (6) UTI (urinary tract infection) ICD Code: N39.0 - Urinary tract infection, site not specified Status: Acute (7) Hypercalcemia ICD Code: E83.52 - Hypercalcemia Status: Acute Assessment and Plan -Right lower lobe dense consolidation, community-acquired pneumonia. Continue Rocephin and Zithromax. He is stable on room air, but at risk for decompensation given his advanced age, dementia, multiple medical comorbidities.. -Intractable nausea and vomiting, followed by hematemesis. Hemoglobin was slight downturn from 11-10.. Etiology of the nausea and vomiting not clear, but has now resolved. He is status post EGD yesterday showing duodenitis, esophagitis, gastritis. He does take Aleve and patient's was counseled he should avoid NSAIDs. Continue PPI. -Severe hypercalcemia -improved. Was likely exacerbated by volume depletion. PTH level is actually low. Continue gentle IV fluids normal saline at 60 mL per hour. Follow-up PTH related peptide. Additionally I will check TSH, ionized calcium, vitamin D levels, vitamin A. Follow BMP. Additionally will order a CT chest with IV contrast to better evaluate the pneumonia and rule out mass. Patient does have history of throat cancer in remission. -Acute kidney injury, resolved. -Severe hypokalemia. Improving. Mag level within normal limits. Continue repletion. Repeat BMP in the morning. -Hypertension. Continue Norvasc. 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 -Dementia. Continue reorientation. -UTI, continue Rocephin and follow up urine culture. -DVT prophylaxis SCDs. Patient requires inpatient treatment due to ongoing electrolyte abnormalities requiring IV fluid and IV replacement, workup for hematemesis to include EGD which cannot be safely done in the outpatient setting given his intractable vomiting, also treatment of community-acquired pneumonia with high risk of decompensation in this elderly patient with multiple medical comorbidities. Discussed with patient's at bedside. Problem Qualifiers (1) Pneumonia: Qualified Codes: J18.1 - Lobar pneumonia, unspecified organism (2) UTI (urinary tract infection): Qualified Codes: N30.00 - Acute cystitis without hematuria Laura Gomez MD Dec 20, 2016 12:38
[2016-12-20] MEDS ORDERED: IOHEXOL 350 MG/ML 10 ML VIAL (for RAD DIAG) IVCONTRAST ONE (15:14)
[2016-12-20 15:15] LABS: PHOSPHORUS 1.6 MG/DL (2.5-4.9)
[2016-12-20 16:00] VITALS: BP 140/82; PULSE 91; RESP 20; TEMP 99.6; O2SAT 94
--- NOTE | 2016-12-20 16:05 | RADRPT ---
EXAM DATE/TIME: 12/20/2016 14:58 [facility] COMPARISON: No previous studies available for comparison. INDICATIONS : Right middle lobe infiltrate. IV CONTRAST: 70 cc Omnipaque 350 (iohexol) IV RADIATION DOSE: 6.92 CTDIvol (mGy) MEDICAL HISTORY : Carcinoma, oral cavity. SURGICAL HISTORY : Abdominal aortic aneurysm repair. ENCOUNTER: Initial ACUITY: 2 days PAIN SCALE: 0/10 LOCATION: chest TECHNIQUE: Volumetric scanning of the chest was performed. Using automated exposure control and adjustment of t he mA and/or kV according to patient size, radiation dose was kept as low as reasonably achievable to obtain optimal diagnostic quality images. DICOM format image data is available electronically for review and comparison. Follow-up recommendations for detected pulmonary nodules are based at a minimum on nodule size and pa tient risk factors according to Fleischner Society Guidelines. FINDINGS: There is a mass in the right lobe measuring 6.8 cm in diameter with some surrounding atelectasis and consolidation. Mass appears to have an endobronchial component in the right lower lobe. There is mild to moderate emphysema at the lung apices. There is an enlarged 1.6 cm subcarinal lymph node and 1.2 cm precarinal lymph node characteristic of rachel metastatic disease. No pleural or pericardial effusion. There is a circumscribed low-attenuation 4 cm lesion right lobe l iver and 1.3 cm lesion left lobe liver most characteristic of hepatic cysts. No acute bony abnormalit ies. CONCLUSION: 1. 6.8 cm mass in right lower lobe with endobronchial component and surrounding consolidation and ate lectasis. Enlarged subcarinal and precarinal lymph nodes. 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 No effusions. Mass would be amenable to transth oracic needle biopsy. Gary Nolasco MD on December 20, 2016 at 15:55 Board Certified Radiologist. This report was verified electronically.
[2016-12-20] MEDS: SODIUM CHLOR 0.9% 1000 ML INJ 1,000 ML IV SCH ×2 (17:31)
[2016-12-20 20:00] VITALS: BP 124/73; PULSE 118; RESP 22; TEMP 99.7; O2SAT 100
[2016-12-20] MEDS: cefTRIAXone INJ 1,000 MG in SODIUM CHLORIDE 0.9% INJ 100 ML IV SCH (22:52)
[2016-12-21] VITALS (7 sets, daily range): BP systolic 104–167; BP diastolic 66–95; PULSE 71–104; RESP 16–20; TEMP 97.9–98.7; O2SAT 96–98
[2016-12-21 08:33] LABS: CALCIUM 10.8 MG/DL (8.5-10.1)
[2016-12-21 08:34] LABS: BICARBONATE 25.6 MEQ/L (21.0-32.0)
[2016-12-21 08:37] LABS: CREATININE 1.1 MG/DL (0.60-1.30)
[2016-12-21] MEDS: SODIUM CHLORIDE 0.9% FLUSH 10 ML FLUSH IV FLUSH SCH ×2 (09:00→20:43)
[2016-12-21] MEDS: DOCUSATE SODIUM 100 MG CAP PO SCH ×2 (09:00→20:43)
[2016-12-21] MEDS: SODIUM CHLOR 0.9% 1000 ML INJ 1,000 ML IV SCH (10:08)
[2016-12-21] MEDS: MULTIVITAMIN TAB PO SCH (10:08)
[2016-12-21] MEDS: amLODIPine BESYLATE 5 MG TAB PO SCH (10:08)
[2016-12-21] MEDS: PRAVASTATIN SOD 20 MG TAB PO SCH (10:08)
[2016-12-21] MEDS: AZITHROMYCIN INJ 500 MG in SODIUM CHLOR 0.9% 250 ML INJ 250 ML IV SCH (10:08)
[2016-12-21] MEDS: FAMOTIDINE 20 MG/2 ML VIAL IV PUSH SCH (10:10)
[2016-12-21] MEDS: ACETAMINOPHEN 325 MG TAB PO PRN ×2 (10:37→14:31)
[2016-12-21] MEDS ORDERED: POTASSIUM CHLORIDE 20 MEQ CONTROLLED RELEASE TAB PO SCH (13:00)
--- NOTE | 2016-12-21 13:13 | HHI.PR ---
Subjective Remarks Patient is having pain in his rectum that is worse when he sits on his butt. Having loose stools. Objective Vitals Vital Signs Date Time Temp Pulse Resp B/P (MAP) Pulse Ox O2 Delivery O2 Flow Rate FiO2 12/21/16 12:02 104 12/21/16 11:45 97.9 84 16 140/81 (100) 97 12/21/16 08:00 97.9 84 16 167/95 (119) 97 12/21/16 00:02 98.2 71 18 119/81 (94) 98 12/20/16 20:00 99.7 118 22 124/73 (90) 100 12/20/16 16:00 99.6 91 20 140/82 (101) 94 I/O 12/20/16 12/20/16 12/20/16 12/21/16 12/21/16 12/21/16 07:00 15:00 23:00 07:00 15:00 23:00 Intake Total 1390 ml 880 ml Output Total 2 ml Balance -2 ml 1390 ml 880 ml Intake Oral 1140 ml IV Total 250 ml 880 ml Output Urine Total 2 ml # Voids 3 # Bowel Movements 2 5 8 Result Diagram: 12/20/16 0645 12/21/16 0653 Objective Remarks GENERAL: Well-nourished, well-developed elderly male patient. Pleasantly confused. SKIN: Warm and dry. HEAD: Normocephalic. EYES: No scleral icterus. No injection or drainage. NECK: Supple, trachea midline. No JVD or lymphadenopathy. CARDIOVASCULAR: Regular rate and rhythm without murmurs, gallops, or rubs. RESPIRATORY: Breath sounds equal bilaterally. No accessory muscle use. GASTROINTESTINAL: Abdomen soft, non-tender, nondistended. EXTREMITIES: No cyanosis, or edema. NEUROLOGICAL: Awake, alert, and oriented to self. Non-focal. A/P Problem List: (1) Pneumonia ICD Code: J18.9 - Pneumonia, unspecified organism Status: Acute (2) Hematemesis ICD Code: K92.0 - Hematemesis (3) Intractable nausea and vomiting ICD Code: R11.2 - Nausea with vomiting, unspecified (4) Hypokalemia ICD Code: E87.6 - Hypokalemia (5) Acute kidney injury ICD Code: N17.9 - Acute kidney failure, unspecified Status: Acute (6) UTI (urinary tract infection) ICD Code: N39.0 - Urinary tract infection, site not specified Status: Acute (7) Hypercalcemia ICD Code: E83.52 - Hypercalcemia Status: Acute (8) Mass of right lung ICD Code: R91.8 - Other nonspecific abnormal finding of lung field Assessment and Plan -Right lower lobe dense consolidation, postobstructive pneumonia; chest CT yesterday and it shows a 6.8 cm lung mass with endobronchial component and surrounding consolidation and atelectasis with enlarged subcarinal and precarinal lymph nodes most consistent with a primary lung malignancy with mediastinal rachel metastasis. Will order CT biopsy tomorrow, consult pulmonology. Continue Rocephin and Zithromax. He is stable on room air, but at risk for decompensation given his advanced age, dementia, multiple medical comorbidities.. -Intractable nausea and vomiting, followed by hematemesis. Hemoglobin was slight downturn from 11-10.. Etiology of the nausea and vomiting not clear, possibly gastroenteritis, but has now resolved. He is status post EGD yesterday showing duodenitis, esophagitis, gastritis. He does take Aleve and patient's was counseled he should avoid NSAIDs. Continue PPI. -Severe hypercalcemia -improved. Probably due to the lung cancer. PTH level is actually low. Continue gentle IV fluids normal saline at 60 mL per hour. Follow-up PTH related peptide. -Acute kidney injury, resolved. -Hypophosphatemia. Start K-Phos. -Severe hypokalemia. Improving. Mag level within normal limits. Continue repletion. Repeat BMP in the morning. -Hypertension. Continue Norvasc. 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 -Dementia. Continue reorientation. -UTI, continue Rocephin, urine culture with 50-100,000 coliform units of mixed gram-positive however he is symptomatic with dysuria. -DVT prophylaxis SCDs. Patient requires inpatient treatment due to ongoing electrolyte abnormalities requiring IV fluid and IV replacement, workup for lung mass and hematemesis to include EGD which cannot be safely done in the outpatient setting given his intractable vomiting, also treatment of community-acquired pneumonia with high risk of decompensation in this elderly patient with multiple medical comorbidities. Discussed with patient's at bedside. Problem Qualifiers (1) Pneumonia: Qualified Codes: J18.1 - Lobar pneumonia, unspecified organism (2) UTI (urinary tract infection): Qualified Codes: N30.00 - Acute cystitis without hematuria Laura Gomez MD Dec 21, 2016 13:13
[2016-12-21] MEDS: SIMETHICONE 80 MG CHEWABLE TAB CHEW ONE ×2 (13:15→16:05)
[2016-12-21] MEDS ORDERED: SIMETHICONE 80 MG CHEWABLE TAB CHEW PRN (13:15)
[2016-12-21] MEDS: PANTOPRAZOLE SOD 40 MG DELAYED RELEASE TAB PO SCH (14:27)
[2016-12-21] MEDS: POTASSIUM PHOSPHATE MONOBASIC 500 MG TAB PO SCH ×2 (14:28→20:43)
[2016-12-21] MEDS ORDERED: POTASSIUM CHLORIDE 10 MEQ CONTROLLED RELEASE TAB PO ONE (14:30)
--- NOTE | 2016-12-21 16:38 | MB ---
cc: Eliana CRADOSO M.D. DATE OF CONSULTATION 12/21/2016 HISTORY Mr. Jordan is an 81-year-old white male admitted for nausea, vomiting and suspected pneumonia. He has been ill for about 2 weeks with intermittent nausea and vomiting, loss of appetite and a cough with some purulent sputum and occasional blood streaking of the sputum. No significant hemoptysis. On presentation to the emergency room he had a chest x-ray which revealed right midlung infiltrate and then a CT scan yesterday which revealed a 6.8 cm mass in the right lower lobe with consolidation and mediastinal adenopathy. Radiologist commented that it would be amenable to transthoracic biopsy so he has been scheduled for that for tomorrow morning. The patient's nausea and vomiting has resolved. He was endoscoped by GI and was found to have esophagitis, gastritis and duodenitis. His diet has been resumed and he did eat a normal lunch today. 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 Grimaldo as recently as September was apparently negative for recurrence. He was a heavy prior smoker of about 70 pack-years, quit smoking when the laryngeal cancer was identified. He denies shortness of breath. There has been weight loss and loss of appetite. No notable fever. is at the bedside and confirms this because the patient does have some memory loss, probably mild dementia. PAST MEDICAL HISTORY 1. AAA repair with stenting. 2. Prior cataract surgery. 3. Hernia repair. 4. Left knee replacement in 2007. ALLERGIES None known. MEDICATIONS Were reviewed in the EMR. 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 , living with his . Occasional alcohol but not to excess. FAMILY HISTORY Positive for cancer. REVIEW OF SYSTEMS As noted above. PHYSICAL EXAMINATION GENERAL: Thin, white male in no distress. VITAL SIGNS: Afebrile , pulse is 80-90, respirations are 18, blood pressure is 104/60 and saturation is 95% on room air. HEENT: Sclerae anicteric. Mucous membranes are moist. NECK: No adenopathy in the neck, supraclavicular region. CHEST: Diminished but clear. No congestion or wheezes. No rhonchi. CARDIOVASCULAR: Regular rhythm. No harsh murmur. ABDOMEN: Soft, nontender. EXTREMITIES: No peripheral edema, cyanosis or clubbing. LABORATORY DATA White count is 10,000, hemoglobin is 10, platelet count is normal. INR is normal. BUN and creatinine 11 and 1.1. Mild elevation in calcium at 10.8. DISCUSSION Mr. Jordan presents with nausea and vomiting, weight loss and loss of appetite, but he has a large mass in his right lower lobe. Probable malignancy. He is scheduled for a percutaneous biopsy tomorrow, we will await the reports of that. He was placed on antibiotics on presentation, those can be continued for the time being. And although he has been a heavy prior smoker he is having no problems with shortness of breath or hypoxemia. Further diagnostic and/or therapeutic intervention will depend on the results of this biopsy. R. MD ARNOLD Beard/KK /3:50 PM /4:27 PM
[2016-12-21] MEDS: cefTRIAXone INJ 1,000 MG in SODIUM CHLORIDE 0.9% INJ 100 ML IV SCH (20:42)
[2016-12-21] MEDS: POTASSIUM CHLORIDE 10 MEQ CONTROLLED RELEASE TAB PO SCH (20:44)
[2016-12-22] VITALS (7 sets, daily range): BP systolic 129–140; BP diastolic 76–92; PULSE 70–110; RESP 14–20; TEMP 96.9–98.6; O2SAT 96–99
[2016-12-22] MEDS: SODIUM CHLOR 0.9% 1000 ML INJ 1,000 ML IV SCH (03:43)
[2016-12-22 06:11] LABS: BICARBONATE 28.4 MEQ/L (21.0-32.0); CALCIUM 10.3 MG/DL (8.5-10.1); CREATININE 1.1 MG/DL (0.60-1.30)
[2016-12-22] MEDS: SODIUM CHLORIDE 0.9% FLUSH 10 ML FLUSH IV FLUSH SCH ×2 (07:41→21:03)
[2016-12-22] MEDS: PANTOPRAZOLE SOD 40 MG DELAYED RELEASE TAB PO SCH (08:37)
[2016-12-22] MEDS: MULTIVITAMIN TAB PO SCH (08:37)
[2016-12-22] MEDS: DOCUSATE SODIUM 100 MG CAP PO SCH ×2 (08:37→21:04)
[2016-12-22] MEDS: POTASSIUM CHLORIDE 10 MEQ CONTROLLED RELEASE TAB PO SCH ×2 (08:38→21:05)
[2016-12-22] MEDS: POTASSIUM PHOSPHATE MONOBASIC 500 MG TAB PO SCH ×2 (08:38→21:04)
[2016-12-22] MEDS: PRAVASTATIN SOD 20 MG TAB PO SCH (08:38)
[2016-12-22] MEDS: amLODIPine BESYLATE 5 MG TAB PO SCH (08:38)
[2016-12-22] MEDS: ACETAMINOPHEN 325 MG TAB PO PRN (08:42)
--- NOTE | 2016-12-22 09:35 | HHI.PR ---
Subjective Remarks Patient is still complaining of pain in his paroxysmal morning. He had a bowel movement this morning. Afebrile. No shortness of breath. Objective Vitals Vital Signs Date Time Temp Pulse Resp B/P (MAP) Pulse Ox O2 Delivery O2 Flow Rate FiO2 12/22/16 04:05 98.6 70 14 140/76 (97) 96 12/22/16 00:55 76 129/77 (94) 12/21/16 20:34 98.7 87 16 135/66 (89) 97 12/21/16 20:00 94 12/21/16 15:11 97.9 103 20 104/68 (80) 96 12/21/16 12:02 104 12/21/16 11:45 97.9 84 16 140/81 (100) 97 I/O 12/21/16 12/21/16 12/21/16 12/22/16 12/22/16 12/22/16 07:00 15:00 23:00 07:00 15:00 23:00 Intake Total 880 ml 1159 ml 640 ml 692 ml Balance 880 ml 1159 ml 640 ml 692 ml Intake Oral 720 ml 540 ml IV Total 880 ml 439 ml 100 ml 692 ml Bladder Scan Volume Amount 321 ml 25 ml # Voids 3 2 3 # Bowel Movements 8 3 2 2 Result Diagram: 12/20/16 0645 12/22/16 0517 Objective Remarks GENERAL: Well-nourished, well-developed elderly male patient. Pleasantly confused. SKIN: Warm and dry. Minimal perianal erythema. HEAD: Normocephalic. EYES: No scleral icterus. No injection or drainage. NECK: Supple, trachea midline. No JVD or lymphadenopathy. CARDIOVASCULAR: Regular rate and rhythm without murmurs, gallops, or rubs. RESPIRATORY: Breath sounds equal bilaterally. No accessory muscle use. GASTROINTESTINAL: Abdomen soft, non-tender, nondistended. EXTREMITIES: No cyanosis, or edema. NEUROLOGICAL: Awake, alert, and oriented to self. Non-focal. A/P Problem List: (1) Pneumonia ICD Code: J18.9 - Pneumonia, unspecified organism Status: Acute (2) Hematemesis ICD Code: K92.0 - Hematemesis (3) Intractable nausea and vomiting ICD Code: R11.2 - Nausea with vomiting, unspecified (4) Hypokalemia ICD Code: E87.6 - Hypokalemia (5) Acute kidney injury ICD Code: N17.9 - Acute kidney failure, unspecified Status: Acute (6) UTI (urinary tract infection) ICD Code: N39.0 - Urinary tract infection, site not specified Status: Acute (7) Hypercalcemia ICD Code: E83.52 - Hypercalcemia Status: Acute (8) Mass of right lung ICD Code: R91.8 - Other nonspecific abnormal finding of lung field Assessment and Plan -Right lower lobe dense consolidation, postobstructive pneumonia; chest CT showed a 6.8 cm lung mass with endobronchial component and surrounding consolidation and atelectasis with enlarged subcarinal and precarinal lymph nodes most consistent with a primary lung malignancy with mediastinal rachel metastasis. For CT biopsy today, appreciate pulmonology following. Will start Levaquin by mouth and change to Rocephin and Zithromax. He is stable on room air. -Intractable nausea and vomiting, followed by hematemesis. Hemoglobin was slight downturn from 11-10.. Etiology of the nausea and vomiting not clear, possibly gastroenteritis, but has now resolved. He is status post EGD \showing duodenitis, esophagitis, gastritis. He does take Aleve and patient's was counseled he should avoid NSAIDs. Continue PPI. -Severe hypercalcemia -improved. Probably due to the lung cancer. PTH level is actually low. Follow-up PTH related peptide. DC IV fluids. -Acute kidney injury, resolved. -Hypophosphatemia. Continue K-Phos. -Severe hypokalemia. Improving. Mag level within normal limits. Continue repletion. Repeat BMP in the morning. -Hypertension. Continue Norvasc. 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 -Dementia. Continue reorientation. -UTI, continue Rocephin, urine culture with 50-100,000 coliform units of mixed gram-positive however he is symptomatic with dysuria. -DVT prophylaxis SCDs. Problem Qualifiers (1) Pneumonia: Qualified Codes: J18.1 - Lobar pneumonia, unspecified organism (2) UTI (urinary tract infection): Qualified Codes: N30.00 - Acute cystitis without hematuria Laura Gomez MD Dec 22, 2016 09:35
[2016-12-22] MEDS ORDERED: LEVOFLOXACIN 750 MG TAB PO SCH (09:45)
[2016-12-22] MEDS: PHENAZOPYRIDINE HCL 200 MG TAB PO SCH ×2 (14:00→21:05)
[2016-12-23] VITALS (14 sets, daily range): BP systolic 102–154; BP diastolic 50–83; PULSE 76–104; RESP 16–20; TEMP 96.7–98.5; O2SAT 94–100
[2016-12-23] MEDS: ACETAMINOPHEN 325 MG TAB PO PRN (01:30)
[2016-12-23] MEDS: PHENAZOPYRIDINE HCL 200 MG TAB PO SCH ×3 (06:14→21:24)
[2016-12-23 06:47] LABS: BICARBONATE 26.7 MEQ/L (21.0-32.0); CALCIUM 10.4 MG/DL (8.5-10.1); MAGNESIUM 1.5 MG/DL (1.5-2.5)
[2016-12-23 06:51] LABS: CREATININE 1.2 MG/DL (0.60-1.30); PHOSPHORUS 2.1 MG/DL (2.5-4.9)
--- NOTE | 2016-12-23 08:30 | HHI.GIFU ---
Subjective Remarks Patient somewhat of a poor historian reports having had episodes of rectal pain localized to the rectum with no exacerbating or alleviating factors the patient has been having regular bowel movements the pain only lasts a few minutes The nurse reports that his stools have been black and tarry Objective Vitals I&O Vital Signs Date Time Temp Pulse Resp B/P (MAP) Pulse Ox O2 Delivery O2 Flow Rate FiO2 12/23/16 08:00 97.5 79 18 134/72 (92) 96 12/23/16 04:00 96.7 95 18 145/67 (93) 96 12/23/16 00:00 98.5 100 18 154/71 (98) 96 12/22/16 20:00 97.0 81 16 139/92 (108) 96 12/22/16 16:00 96.9 97 18 136/84 (101) 99 12/22/16 13:55 97.3 110 18 130/84 (99) 97 12/22/16 13:47 97.3 110 16 130/84 (99) 97 12/22/16 12:00 97.2 96 20 129/77 (94) 96 I/O 12/22/16 12/22/16 12/22/16 12/23/16 12/23/16 12/23/16 07:00 15:00 23:00 07:00 15:00 23:00 Intake Total 692 ml 725 ml 1321 ml 0 ml Balance 692 ml 725 ml 1321 ml 0 ml Intake Oral 725 ml 425 ml 0 ml IV Total 692 ml 896 ml # Voids 3 3 1 3 # Bowel Movements 2 3 1 2 Laboratory Laboratory Tests Test 12/23/16 06:10 Blood Urea Nitrogen 12 Creatinine 1.20 Random Glucose 85 Calcium Level 10.4 Phosphorus Level 2.1 Magnesium Level 1.5 Sodium Level 138 Potassium Level 3.7 Chloride Level 105 Carbon Dioxide Level 26.7 Anion Gap 6 Estimat Glomerular Filtration Rate 58 Date/Time Source Procedure Growth Status 12/17/16 21:10 Urine Clean Catch Urine Culture - Final 50-100,000 CFU/ML MIXED GRAM POSITIVE... Complete Physical Exam HEENT: normocephalic; NECK: Neck is supple CHEST: Chest is clear to auscultation and percussion. CARDIAC: Regular rate and rhythm with no murmur gallop or rubs. ABDOMEN: Soft, nondistended, nontender; no hepatosplenomegaly; bowel sounds are present in all four quadrants. EXTREMITIES: No clubbing, cyanosis, or edema. SKIN: Normal; no rash; no jaundice. GRINDER SET UP OPERATOR UNIVERSAL: No focal deficits; alert Assessment and Plan Plan N/V,hematemesisresolved on EGD esophagitis,gastritis, and duodenitis Reports of melanic stool Complaints of rectal pain etiology unclear cont PPI avoid NSAIDs and ASA advance diet as tolerated We'll proceed with a flexible sigmoidoscopy tomorrow and possible repeat EGD if the patient's white count appears to be declining Continue with current supportive care Matthew Plata MD Dec 23, 2016 08:29
[2016-12-23] MEDS: DOCUSATE SODIUM 100 MG CAP PO SCH ×2 (09:00→13:30)
[2016-12-23] MEDS ORDERED: MIDAZOLAM HCL 2 MG/2 ML VIAL IV ONE (09:14)
--- NOTE | 2016-12-23 09:33 | PD.RAD ---
Post CT Procedure Prog Note Pre Procedure Diagnosis: (1) Mass of right lung Post Procedure Diagnosis: (1) Mass of right lung Procedure Date: Dec 23, 2016 Supervising Radiologist: Piter Chakraborty Anesthesia: Local, Analgesia, Conscious Sedation Plan of Activity Patient to Unit: PACU Patient Condition: Good See PACS Report for procedural detail/treatment Biopsy Imaging Guidance: CT Side: Right Biopsy Procedure: Lung Specimen: Core Biopsy (18 gauge x 3) Piter Chakraborty MD Dec 23, 2016 09:33
[2016-12-23] MEDS ORDERED: LIDOCAINE HCL 1% 30 ML VIAL SQ ONE (09:40)
--- NOTE | 2016-12-23 09:54 | RADRPT ---
EXAM DATE/TIME: 12/23/2016 09:40 [facility] COMPARISON: CHEST SINGLE AP, December 17, 2016, 22:40. INDICATIONS : Post right lung needle biopsy. MEDICAL HISTORY : Hypertension. Aneurysm, abdominal. CVA. Throat Cancer. Chemotherapy. Melanoma, ear. SURGICAL HISTORY : Lens implant. Neck spur removed. Knee replacement. Left hand. Melanoma removed from ear. ENCOUNTER: Initial ACUITY: 1 week PAIN SCORE: 0/10 LOCATION: Right chest FINDINGS: No evidence of pneumothorax status post right lung biopsy. Stable large right lower lung mass. Left lung is clear. No evidence of mediastinal shift. CONCLUSION: No evidence of pneumothorax. Anthony Zepeda MD on December 23, 2016 at 9:50 Board Certified Radiologist. This report was verified electronically.
--- NOTE | 2016-12-23 09:59 | RADRPT ---
EXAM DATE/TIME: 12/23/2016 09:07 [facility] COMPARISON: No previous studies available for comparison. INDICATIONS : Right lower lung biopsy for mass. SEDATION TIME: 30 minutes BIOPSY SITE: Right lung MEDICATION(S): 1.) 1 mg midazolam (Versed) IV 2.) 100 mcg fentanyl (Sublimaze) IV DEVICE(S): 1.) 18 gauge Temno core biopsy needle MEDICAL HISTORY : Hypertension. Aneurysm, abdominal. Hernia. SURGICAL HISTORY : Abdominal aortic aneurysm repair. Hernia repair. Laryngeal cancer. ENCOUNTER: Initial ACUITY: 1 day PAIN SCORE: 0/10 LOCATION: Right chest A total of three core specimen(s) were obtained and sent to the laboratory for pathologic evaluation. PROCEDURE: 1. CT guided lung biopsy. 2. Conscious sedation with continuous EKG and oximetry monitoring. 3. EKG and oximetry remained stable throughout the procedure. Prior to the procedure informed consent was obtained. Any appropriate prior imaging studies were rev iewed. Using automated exposure control and adjustment of the mA and/or kV according to patient size, radiation dose was kept as low as reasonably achievable to obtain optimal diagnostic quality images. DICOM format image data is available electronically for review and comparison. The site was prepped in a sterile fashion. Full sterile technique was used, including cap, mask, sherrie rile gloves and gown and a large sterile sheet. Hand hygiene and 2% chlorhexidine and/or betadine/al cohol prep was utilized per protocol for cutaneous antisepsis. The skin and subcutaneous tissues wer e infiltrated with local anesthetic solution. With CT guidance the previously identified target was localized. Biopsy was performed using the presc ribed needle as above. A total of 3 biopsies were obtained. Adequate hemostasis was obtained with co mpression at the puncture site. Follow-up CT scan reveals no pneumothorax. Conscious sedation was performed with the prescribed dosages and duration as above in the presence of an independent trained radiology nurse to assist in the monitoring of the patient. EKG and oximetry remained stable throughout the procedure. The patient tolerated the procedure well and there were no complications. The patient was sent to Radiology Outpatient Unit in stable condition. CONCLUSION: Uncomplicated CT guided biopsy. Piter Chakraborty MD on December 23, 2016 at 9:56 Board Certified Radiologist. This report was verified electronically.
[2016-12-23] MEDS: POTASSIUM PHOSPHATE MONOBASIC 500 MG TAB PO SCH ×2 (13:30→21:23)
[2016-12-23] MEDS: POTASSIUM CHLORIDE 10 MEQ CONTROLLED RELEASE TAB PO SCH ×2 (13:30→21:22)
[2016-12-23] MEDS: amLODIPine BESYLATE 5 MG TAB PO SCH (13:30)
[2016-12-23] MEDS: PRAVASTATIN SOD 20 MG TAB PO SCH (13:30)
[2016-12-23] MEDS: MULTIVITAMIN TAB PO SCH (13:30)
[2016-12-23] MEDS: CEFUROXIME AXETIL 500 MG TAB PO SCH ×2 (13:31→21:22)
[2016-12-23] MEDS: DOXYCYCLINE HYCLATE 100 MG TAB PO SCH ×2 (13:31→21:00)
[2016-12-23] MEDS: METOPROLOL TARTRATE 25 MG TAB PO SCH ×2 (13:31→21:23)
[2016-12-23] MEDS: SODIUM CHLORIDE 0.9% FLUSH 10 ML FLUSH IV FLUSH SCH ×2 (13:31→21:25)
[2016-12-23] MEDS: PANTOPRAZOLE SOD 40 MG DELAYED RELEASE TAB PO SCH (13:31)
[2016-12-23] MEDS: ACETAMINOPHEN/HYDROcodone 325 MG/5 MG TAB PO PRN ×2 (15:35→22:06)
--- NOTE | 2016-12-23 16:02 | HHI.PR ---
Subjective Remarks Patient seen and examined today for follow-up on postreduction pneumonia, lung mass, nausea, vomiting, hematemesis. Patient just returned back from having CT- guided biopsy performed. He is stating he is having pain in his right rib area from where they did the biopsy. Patient denies any shortness of breath, hemoptysis. Objective Vitals Vital Signs Date Time Temp Pulse Resp B/P (MAP) Pulse Ox O2 Delivery O2 Flow Rate FiO2 12/23/16 12:20 98.2 77 16 151/83 (105) 100 12/23/16 11:50 98.2 88 16 132/68 (89) 100 12/23/16 11:20 98.2 84 16 134/76 (95) 100 12/23/16 10:58 98.2 78 16 114/64 (81) 100 12/23/16 10:20 98.2 89 16 116/74 (88) 100 12/23/16 10:05 98.2 97 16 113/67 (82) 99 12/23/16 09:55 98.2 97 16 132/68 (89) 99 12/23/16 09:50 98.2 99 16 120/72 (88) 99 12/23/16 09:31 97.5 79 20 134/72 (92) 96 12/23/16 08:00 97.5 79 18 134/72 (92) 96 12/23/16 04:00 96.7 95 18 145/67 (93) 96 12/23/16 00:00 98.5 100 18 154/71 (98) 96 12/22/16 20:00 97.0 81 16 139/92 (108) 96 12/22/16 16:00 96.9 97 18 136/84 (101) 99 I/O 12/22/16 12/22/16 12/22/16 12/23/16 12/23/16 12/23/16 07:00 15:00 23:00 07:00 15:00 23:00 Intake Total 692 ml 725 ml 1321 ml 0 ml Balance 692 ml 725 ml 1321 ml 0 ml Intake Oral 725 ml 425 ml 0 ml IV Total 692 ml 896 ml # Voids 3 3 1 3 # Bowel Movements 2 3 1 2 Result Diagram: 12/20/16 0645 12/23/16 0610 Imaging Last Impressions Lung Biopsy CT 12/23/16 0600 Signed Impressions: Service Date/Time: Friday, December 23, 2016 09:07 - CONCLUSION: Uncomplicated CT guided biopsy. Piter Chakraborty MD Chest X-Ray 12/23/16 0000 Signed Impressions: Service Date/Time: Friday, December 23, 2016 09:40 - CONCLUSION: No evidence of pneumothorax. Anthony Zepeda MD Chest CT 12/20/16 0000 Signed Impressions: Service Date/Time: Tuesday, December 20, 2016 14:58 - CONCLUSION: 1. 6.8 cm mass in right lower lobe with endobronchial component and surrounding consolidation and atelectasis. Enlarged subcarinal and precarinal lymph nodes. Findings are most characteristic of a primary lung malignancy with mediastinal rachel metastasis. No effusions. Mass would be amenable to transthoracic needle biopsy. Gary Nolasco MD Abdomen/Pelvis CT 12/17/[id number] Signed Impressions: Service Date/Time: Saturday, December 17, 2016 21:28 - CONCLUSION: There is a dense right lower lobe parenchymal consolidated infiltrate. Interrum endovascular stent abdominal aortic repair infrarenal extending into the common iliac arteries. No evidence of leak. Other chronic findings as described above.. Ernesto Ramos MD Objective Remarks GENERAL: Well-developed, cachectic, in no acute distress. alert and orientated HEENT: Head is normocephalic without any lesions or masses noted. Facial features are symmetric. Eyes: Extraocular muscles are intact. Conjunctivae were clear. NECK: Supple without any masses. Trachea midline no deviation. No JVD, CARDIAC: Regular rhythm, regular rate. S1/S2 are heard. No murmurs gallops or rubs. LUNGS: Clear to auscultation bilaterally. No wheeze, rhonchi or rales. No use of accessory muscles on inspiration or expiration. ABDOMEN: Soft, nontender. Nondistended. Bowel sounds heard in all 4 quadrants. No organomegaly or masses. Negative rebound, negative guarding EXTREMITIES: No edema, pulses are equal bilaterally. No cyanosis or clubbing NEUROLOGY: Mood and affect appear appropriate. Cranial nerves II through XII grossly intact. Moving all extremities, Urinary Catheter: No Vascular Central Line Catheter: No A/P Assessment and Plan Right lower lobe dense consolidation, postobstructive pneumonia; Chest CT 12/20 showed a 6.8 cm lung mass with endobronchial component and surrounding consolidation and atelectasis with enlarged subcarinal and precarinal lymph nodes most consistent with a primary lung malignancy with mediastinal rachel metastasis. CT biopsy performed today, pulmonology following the patient. Continue Ceftin, doxycycline by mouth Intractable nausea and vomiting, followed by hematemesis. Resolved Hemoglobin is stable Auto Service Station Attendant was consulted for recommendations Status post EGD \showing duodenitis, esophagitis, gastritis. He does take Aleve and patient's was counseled he should avoid NSAIDs. Continue PPI. Severe hypercalcemia -improved. Probably due to the lung cancer. PTH level is actually low. Follow-up PTH related peptide. Acute kidney injury, resolved. Continue monitor renal function Hypophosphatemia. Continue K-Phos. Severe hypokalemia. Improving. Monitor lites and replace as needed Hypertension. Stable Continue Norvasc. 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 Dementia. Continue reorientation. Urinary tract infection Urine culture shows 50-100,000 mixed gram-positive renita DVT prevention Sequential compression devices Jasson Lock Dec 23, 2016 16:02 Laura Gomez MD Dec 31, 2016 17:48
--- NOTE | 2016-12-23 16:08 | EKG ---
Date Performed: 12/22/2016 Time Performed: 14:40:41 PTAGE: 81 years EKG: SINUS TACHYCARDIA WITH FREQUENT VENTRICULAR PREMATURE COMPLEXES ABNORMAL RHYTHM ECG Compare d to prior tracing no significant change PREVIOUS TRACING : 12/17/2016 19.17 DOCTOR: Tutu Westfall Interpretating Date/Time 12/23/2016 16:06:08
[2016-12-24] VITALS (11 sets, daily range): BP systolic 111–138; BP diastolic 58–96; PULSE 67–96; RESP 18–20; TEMP 97–98.6; O2SAT 92–97
[2016-12-24 05:12] LABS: AUTOMATED NEUTROPHIL # 5.9 TH/MM3 (1.8-7.7); BASOPHIL # 0.1 TH/MM3 (0-0.2); BASOPHIL % 0.8 % (0.0-2.0); EOSINOPHIL # 0.2 TH/MM3 (0-0.4); EOSINOPHIL % 1.6 % (0.0-4.0); HEMATOCRIT 30.6 % (39.0-51.0); HEMOGLOBIN 9.9 GM/DL (13.0-17.0); LYMPH % 20.4 % (9.0-44.0); LYMPHOCYTE # 1.9 TH/MM3 (1.0-4.8); MEAN CELL VOLUME 84.8 FL (80.0-100.0); MEAN CORPUSCULAR HEMOGLOBIN 27.3 PG (27.0-34.0); MEAN CORPUSCULAR HGB CONC 32.2 % (32.0-36.0); MONO % 13.7 % (0.0-8.0); MONOCYTE # 1.3 TH/MM3 (0-0.9); NEUT % 63.5 % (16.0-70.0); PLATELET COUNT 269 TH/MM3 (150-450); RED BLOOD COUNT 3.62 MIL/MM3 (4.50-5.90); RED CELL DISTRIBUTION WIDTH 14.8 % (11.6-17.2); WHITE BLOOD COUNT 9.4 TH/MM3 (4.0-11.0)
[2016-12-24 05:28] LABS: CALCIUM 10.7 MG/DL (8.5-10.1)
[2016-12-24 05:29] LABS: BICARBONATE 24.8 MEQ/L (21.0-32.0); MAGNESIUM 1.8 MG/DL (1.5-2.5)
[2016-12-24 05:32] LABS: CREATININE 1.2 MG/DL (0.60-1.30); PHOSPHORUS 2.4 MG/DL (2.5-4.9)
[2016-12-24] MEDS: ACETAMINOPHEN/HYDROcodone 325 MG/5 MG TAB PO PRN (05:59)
[2016-12-24] MEDS: PHENAZOPYRIDINE HCL 200 MG TAB PO SCH ×2 (05:59→14:06)
[2016-12-24] MEDS ORDERED: PROPOFOL 200 MG/20 ML AMP IV ONE (07:39)
--- NOTE | 2016-12-24 07:50 | PD.PROCEDR ---
GI Procedure PROCEDURE PERFORMED Flexible sigmoidoscopy with biopsy INDICATION FOR PROCEDURE Rectal pain PROCEDURE: The procedure, risks and benefits were discussed with Mr. Jordan and informed consent was obtained. Anesthesia sedated him with Diprivan. He was placed in the left lateral decubitus position. Flexible Sigmoidoscopy: The Pentax videoscope was introduced through the rectum and advanced to the sigmoid. Retroflexion was performed in the rectum. Colonic prep was very poor patient has stool impaction I had to digitally disimpact the patient, there was significant ulceration in the rectum most likely because of the stool impaction biopsy was done FINDINGS: Stool impaction Rectal ulcer biopsy was done ESTIMATED BLOOD LOSS: None SPECIMENS REMOVED: Rectal ulcer COMPLICATIONS: None PLAN: Avoid constipation Stool softener Await biopsy results If the anemia persist upper endoscopy and full colonoscopy may be needed Shamika Simmons MD Dec 24, 2016 07:50
--- NOTE | 2016-12-24 07:53 | HHI.GIFU ---
Subjective Remarks Patient laying in bed comfortably, still complaining of abdominal discomfort, had 2 enemas this morning Objective Vitals I&O Vital Signs Date Time Temp Pulse Resp B/P (MAP) Pulse Ox O2 Delivery O2 Flow Rate FiO2 12/24/16 06:35 97.3 84 18 138/66 (90) 93 12/24/16 04:00 97.3 84 18 138/66 (90) 93 12/24/16 00:00 97.6 84 20 129/59 (82) 92 12/23/16 20:00 98.1 104 20 102/50 (67) 94 12/23/16 16:35 16 12/23/16 16:00 97.3 76 17 128/70 (89) 95 12/23/16 12:20 98.2 77 16 151/83 (105) 100 12/23/16 11:50 98.2 88 16 132/68 (89) 100 12/23/16 11:20 98.2 84 16 134/76 (95) 100 12/23/16 10:58 98.2 78 16 114/64 (81) 100 12/23/16 10:20 98.2 89 16 116/74 (88) 100 12/23/16 10:05 98.2 97 16 113/67 (82) 99 12/23/16 09:55 98.2 97 16 132/68 (89) 99 12/23/16 09:50 98.2 99 16 120/72 (88) 99 12/23/16 09:31 97.5 79 20 134/72 (92) 96 12/23/16 08:00 90 12/23/16 08:00 97.5 79 18 134/72 (92) 96 I/O 12/23/16 12/23/16 12/23/16 12/24/16 12/24/16 12/24/16 07:00 15:00 23:00 07:00 15:00 23:00 Intake Total 0 ml 500 ml 380 ml Balance 0 ml 500 ml 380 ml Intake Oral 0 ml 500 ml 380 ml # Voids 3 6 3 # Bowel Movements 2 4 0 Laboratory Laboratory Tests Test 12/24/16 04:30 12/24/16 04:50 White Blood Count 9.4 Red Blood Count 3.62 Hemoglobin 9.9 Hematocrit 30.6 Mean Corpuscular Volume 84.8 Mean Corpuscular Hemoglobin 27.3 Mean Corpuscular Hemoglobin Concent 32.2 Red Cell Distribution Width 14.8 Platelet Count 269 Mean Platelet Volume 8.0 Neutrophils (%) (Auto) 63.5 Lymphocytes (%) (Auto) 20.4 Monocytes (%) (Auto) 13.7 Eosinophils (%) (Auto) 1.6 Basophils (%) (Auto) 0.8 Neutrophils # (Auto) 5.9 Lymphocytes # (Auto) 1.9 Monocytes # (Auto) 1.3 Eosinophils # (Auto) 0.2 Basophils # (Auto) 0.1 CBC Comment DIFF FINAL Differential Comment Blood Urea Nitrogen 15 Creatinine 1.20 Random Glucose 81 Calcium Level 10.7 Phosphorus Level 2.4 Magnesium Level 1.8 Sodium Level 138 Potassium Level 4.2 Chloride Level 105 Carbon Dioxide Level 24.8 Anion Gap 8 Estimat Glomerular Filtration Rate 58 Date/Time Source Procedure Growth Status 12/17/16 21:10 Urine Clean Catch Urine Culture - Final 50-100,000 CFU/ML MIXED GRAM POSITIVE... Complete Physical Exam HEENT: normocephalic; NECK: Neck is supple CHEST: Chest is clear to auscultation and percussion. CARDIAC: Regular rate and rhythm with no murmur gallop or rubs. ABDOMEN: Soft, nondistended, nontender; no hepatosplenomegaly; bowel sounds are present in all four quadrants. EXTREMITIES: No clubbing, cyanosis, or edema. SKIN: Normal; no rash; no jaundice. SENIOR MARKET RESEARCH ANALYST: No focal deficits; alert Assessment and Plan Plan N/V,hematemesis resolved on EGD esophagitis,gastritis, and duodenitis Reports of melanic stool Complaints of rectal pain Flexible sigmoidoscopy was done today FINDINGS: Stool impaction I had to digitally disimpact the patient Rectal ulcer biopsy was done PLAN: Avoid constipation Stool softener Await biopsy results If the anemia persist repeat upper endoscopy and full colonoscopy may be needed cont PPI avoid NSAIDs and ASA advance diet as tolerated Shamika Simmons MD Dec 24, 2016 07:53
[2016-12-24] MEDS: DOXYCYCLINE HYCLATE 100 MG TAB PO SCH ×2 (09:00→21:00)
[2016-12-24] MEDS: POTASSIUM PHOSPHATE MONOBASIC 500 MG TAB PO SCH ×2 (10:34→22:42)
[2016-12-24] MEDS: DOCUSATE SODIUM 100 MG CAP PO SCH ×2 (10:34→22:33)
[2016-12-24] MEDS: CEFUROXIME AXETIL 500 MG TAB PO SCH ×2 (10:35→22:33)
[2016-12-24] MEDS: PANTOPRAZOLE SOD 40 MG DELAYED RELEASE TAB PO SCH (10:35)
[2016-12-24] MEDS: POTASSIUM CHLORIDE 10 MEQ CONTROLLED RELEASE TAB PO SCH ×2 (10:36→22:49)
[2016-12-24] MEDS: MULTIVITAMIN TAB PO SCH (10:37)
[2016-12-24] MEDS: METOPROLOL TARTRATE 25 MG TAB PO SCH ×2 (10:37→22:33)
[2016-12-24] MEDS: PRAVASTATIN SOD 20 MG TAB PO SCH (10:37)
[2016-12-24] MEDS: amLODIPine BESYLATE 5 MG TAB PO SCH (10:37)
[2016-12-24] MEDS: SODIUM CHLORIDE 0.9% FLUSH 10 ML FLUSH IV FLUSH SCH ×2 (10:38→22:36)
--- NOTE | 2016-12-24 13:32 | HHI.PR ---
Subjective Remarks RN reports some emesis since last night. Patient denies any new complaints. Denies any shortness of breath. Denies any nausea currently, does corroborate the emesis. Apparently tolerated by mouth intake well for the past few days. Objective Vital Signs Date Time Temp Pulse Resp B/P (MAP) Pulse Ox O2 Delivery O2 Flow Rate FiO2 12/24/16 12:00 97.3 78 18 132/66 (88) 94 12/24/16 08:35 97.0 67 20 133/96 (108) 94 12/24/16 08:20 Nasal Cannula 2.00 12/24/16 08:19 92 16 123/72 (89) 96 12/24/16 08:00 91 16 117/73 (88) 94 12/24/16 07:50 99.3 90 16 132/73 (92) 92 12/24/16 06:35 97.3 84 18 138/66 (90) 93 12/24/16 04:00 97.3 84 18 138/66 (90) 93 12/24/16 00:00 97.6 84 20 129/59 (82) 92 12/23/16 20:00 98.1 104 20 102/50 (67) 94 12/23/16 16:35 16 12/23/16 16:00 97.3 76 17 128/70 (89) 95 I/O 12/23/16 12/23/16 12/23/16 12/24/16 12/24/16 12/24/16 07:00 15:00 23:00 07:00 15:00 23:00 Intake Total 0 ml 500 ml 380 ml Balance 0 ml 500 ml 380 ml Intake Oral 0 ml 500 ml 380 ml # Voids 3 6 3 # Bowel Movements 2 4 0 Result Diagram: 12/24/16 0430 12/24/16 0450 Objective Remarks Soft abdomen, nondistended, nontender Breathing is unlabored, coarse breath sounds bilaterally slow to respond, slightly confused but does cooperate A/P Assessment and Plan Right lower lobe dense consolidation, postobstructive pneumonia; Chest CT 12/20 showed a 6.8 cm lung mass with endobronchial component and surrounding consolidation and atelectasis with enlarged subcarinal and precarinal lymph nodes most consistent with a primary lung malignancy with mediastinal rachel metastasis. CT biopsy performed yesterday pulmonology following the patient. Continue Ceftin, doxycycline by mouth Intractable nausea and vomiting, followed by hematemesis. Resolved Hemoglobin is stable Race Relations Adviser was consulted for recommendations Status post EGD \showing duodenitis, esophagitis, gastritis. He does take Aleve and patient's was counseled he should avoid NSAIDs. Continue PPI. Rectal ulcer noted yesterday; avoid NSAIDS. ? etiology of constipation Constipation - likely 2/2 hypercalcemia. oral stool softeners. I independent only reviewed the CT scan and that show substantial colonic stool retention diffusely, we'll order a Gastrografin enema. Severe hypercalcemia - partially improved. Probably due to the lung cancer. Vit D 25 OH is low, PTH level is actually low. Follow-up PTH related peptide. Hypophosphatemia. Continue K-Phos. Severe hypokalemia -resolved daily Kcl Hypertension. Stable Continue Norvasc. 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 Dementia. Continue reorientation. abnormal UA- no pankaj UTI DVT prevention Sequential compression devices Discussed plan with at bedside. Hunter Meraz MD Dec 24, 2016 13:32
[2016-12-24] MEDS ORDERED: ONDANSETRON HCL 4 MG/2 ML VIAL IV PUSH PRN (15:00)
[2016-12-24] MEDS ORDERED: ENOXAPARIN SODIUM 30 MG/0.3 ML SYRINGE SQ SCH (15:00)
[2016-12-24] MEDS ORDERED: traMADol HCL 50 MG TAB PO PRN (17:45)
[2016-12-24] MEDS ORDERED: ACETAMINOPHEN 500 MG CPLT PO PRN (17:45)
[2016-12-24] MEDS: GABAPENTIN 100 MG CAP PO SCH (18:00)
[2016-12-24] MEDS ORDERED: METHYLNALTREXONE BROMIDE 12 MG/0.6 ML VIAL SQ ONE (20:00)
[2016-12-24] MEDS: HEPARIN SODIUM - SQ 10,000 UNITS/ML VIAL SQ SCH (22:33)
[2016-12-25] VITALS (8 sets, daily range): BP systolic 115–135; BP diastolic 59–76; PULSE 80–94; RESP 15–24; TEMP 96.6–98.7; O2SAT 94–99
[2016-12-25] MEDS: HEPARIN SODIUM - SQ 10,000 UNITS/ML VIAL SQ SCH ×3 (06:49→22:23)
[2016-12-25 08:10] LABS: AUTOMATED NEUTROPHIL # 5.9 TH/MM3 (1.8-7.7); BASOPHIL % 0.3 % (0.0-2.0); EOSINOPHIL # 0.2 TH/MM3 (0-0.4); EOSINOPHIL % 2.1 % (0.0-4.0); HEMATOCRIT 30.2 % (39.0-51.0); HEMOGLOBIN 9.9 GM/DL (13.0-17.0); LYMPH % 22.2 % (9.0-44.0); LYMPHOCYTE # 2.1 TH/MM3 (1.0-4.8); MEAN CELL VOLUME 84.6 FL (80.0-100.0); MEAN CORPUSCULAR HEMOGLOBIN 27.6 PG (27.0-34.0); MEAN CORPUSCULAR HGB CONC 32.6 % (32.0-36.0); MEAN PLATELET VOLUME 8.4 FL (7.0-11.0); MONO % 14.1 % (0.0-8.0); MONOCYTE # 1.4 TH/MM3 (0-0.9); NEUT % 61.3 % (16.0-70.0); PLATELET COUNT 288 TH/MM3 (150-450); RED BLOOD COUNT 3.57 MIL/MM3 (4.50-5.90); RED CELL DISTRIBUTION WIDTH 14.4 % (11.6-17.2); WHITE BLOOD COUNT 9.6 TH/MM3 (4.0-11.0)
[2016-12-25] MEDS: GABAPENTIN 100 MG CAP PO SCH ×3 (09:00→17:44)
[2016-12-25] MEDS: DOXYCYCLINE HYCLATE 100 MG TAB PO SCH ×2 (09:00→22:23)
--- NOTE | 2016-12-25 09:13 | RADRPT ---
EXAM DATE/TIME: 12/25/2016 08:09 [facility] COMPARISON: No previous studies available for comparison. INDICATIONS : Constipation. FLUORO TIME: 0.4 minutes IMAGE COUNT: 6 CONTRAST: 1. Gastroview MEDICAL HISTORY : Hypertension. Aneurysm, abdominal. CVA. Throat Cancer. Chemotherapy. Melanoma, ear SURGICAL HISTORY : Lens implant. Neck spur removed. Knee replacement. Left hand. Melanoma removed from ear. ENCOUNTER: Subsequent ACUITY: 2 weeks PAIN SCORE: 0/10 LOCATION: abdomen. FINDINGS: Keno Writer / Runner film showed an aortic stent graft. Vascular coils are seen in the left medial mid abdomen. Prel iminary film is unremarkable. Under fluoroscopic guidance, a Gastrografin enema was performed. The patient began asking for the jerad t to be stopped immediately upon beginning instillation of Gastrografin. Gastrografin freely flowed t o the distal descending colon when the patient demanded the exam be terminated. The exam was terminat ed at that point. On the later images, contrast can be seen extending to the ascending colon. It is u ncertain if this is actually reached the cecum. An obstructing lesion was not seen. There is stool th roughout to colon. There was a diverticulum seen in the sigmoid colon Post evacuation radiographs are unremarkable. CONCLUSION: Limited Gastrografin enema. An obstructing lesion was not seen. There is stool seen throughout the co jana. There was a diverticulum in the sigmoid region. Roland Ferrell MD on December 25, 2016 at 9:05 Board Certified Radiologist. This report was verified electronically.
[2016-12-25] MEDS: PRAVASTATIN SOD 20 MG TAB PO SCH (09:26)
[2016-12-25] MEDS: PANTOPRAZOLE SOD 40 MG DELAYED RELEASE TAB PO SCH (09:26)
[2016-12-25] MEDS: MULTIVITAMIN TAB PO SCH (09:26)
[2016-12-25] MEDS: DOCUSATE SODIUM 100 MG CAP PO SCH ×2 (09:26→22:21)
[2016-12-25] MEDS: amLODIPine BESYLATE 5 MG TAB PO SCH (09:26)
[2016-12-25] MEDS: CEFUROXIME AXETIL 500 MG TAB PO SCH ×2 (09:26→22:22)
[2016-12-25] MEDS: POTASSIUM PHOSPHATE MONOBASIC 500 MG TAB PO SCH ×2 (09:27→22:21)
[2016-12-25] MEDS: METOPROLOL TARTRATE 25 MG TAB PO SCH ×2 (09:27→22:23)
[2016-12-25] MEDS: POTASSIUM CHLORIDE 10 MEQ CONTROLLED RELEASE TAB PO SCH ×2 (09:28→22:20)
[2016-12-25] MEDS: SODIUM CHLORIDE 0.9% FLUSH 10 ML FLUSH IV FLUSH SCH ×2 (09:29→22:24)
[2016-12-25] MEDS ORDERED: DIATRIZOATE MEGLUM/DIATRIZOATE SOD 120 ML BTL (for RAD DIAG) RECTAL ONE (11:14)
--- NOTE | 2016-12-25 11:49 | ECHRPT ---
Indication: vtach CONCLUSIONS Technically very difficult study. Normal left ventricular size. Wall thickness is normal. The left ventricular systolic function is low normal with an estimated ejection fraction in the range of 50-55%. Wall motion abnormalities cannot be exc luded on the basis of this study. There is trace tricuspid valve regurgitation. The estimated pulmonary arterial pressure is 29 mmHg. BP: / HR: Rhythm: MEASUREMENTS (Male / Female) Normal Values Technical Quality:Technically difficult study 2D ECHO LV Diastolic Diameter PLAX 4.0 cm 4.2 - 5.9 / 3.9 - 5.3 cm LV Systolic Diameter PLAX 3.0 cm IVS Diastolic Thickness 0.8 cm 0.6 - 1.0 / 0.6 - 0.9 cm LVPW Diastolic Thickness 0.9 cm 0.6 - 1.0 / 0.6 - 0.9 cm LV Relative Wall Thickness 0.4 RV Internal Dim ED PLAX 2.2 cm LA Systolic Diameter LX 3.2 cm 3.0 - 4.0 / 2.7 - 3.8 cm DOPPLER Mitral E Point Velocity 54.3 cm/s Mitral A Point Velocity 74.5 cm/s Mitral E to A Ratio 0.7 TR Peak Velocity 268.0 cm/s TR Peak Gradient 28.7 mmHg FINDINGS LEFT VENTRICLE Normal left ventricular size. Wall thickness is normal. The left ventricular systolic function is low normal with an estimated ejection fraction in the rang e of 50- 55%. Wall motion abnormalities cannot be excluded on the basis of this study. RIGHT VENTRICLE Normal right ventricular size and systolic function. LEFT ATRIUM The left atrial size is normal. RIGHT ATRIUM The right atrial size is mildly dilated. ATRIAL SEPTUM Normal atrial septal thickness without atrial level shunting by limited color doppler interrogation. AORTA The aortic root and proximal ascending aorta are normal in size on limited imaging. MITRAL VALVE Structurally normal mitral valve. No mitral valve stenosis or regurgitation. AORTIC VALVE Trileaflet aortic valve. No aortic valve stenosis or regurgitation. TRICUSPID VALVE There is trace tricuspid valve regurgitation. The estimated pulmonary arterial pressure is 29 mmHg. PULMONARY VALVE The pulmonary valve is not well visualized. VESSELS The inferior vena cava is normal in size. PERICARDIUM There is a trivial pericardial effusion present. No hemodynamically significant echocardiographic features were observed (no pre-tamponade physiology). Felice Crump MD (Electronically Signed) Final Date:25 December 2016 11:48
[2016-12-25] MEDS ORDERED: REGADENOSON INJ 0.4 MG/5 ML SYR IV ONE (12:47)
--- NOTE | 2016-12-25 13:28 | HHI.PR ---
Subjective Remarks RN denies any deterioration since last night. Patient did have a very dramatic Gastrografin enema when he began reporting the exam be terminated midway through the procedure. According to the nurses he had a substantial evacuation of his bowels afterwards. According to the the patient appears much more lucid today after his procedure. Objective Vital Signs Date Time Temp Pulse Resp B/P (MAP) Pulse Ox O2 Delivery O2 Flow Rate FiO2 12/25/16 12:00 98.5 88 24 135/65 (88) 97 12/25/16 08:10 97 Nasal Cannula 2.00 12/25/16 08:00 98.7 89 20 127/70 (89) 96 12/25/16 04:00 98.6 83 20 121/68 (85) 97 12/25/16 00:00 96.6 93 20 119/59 (79) 94 12/24/16 22:25 94 Nasal Cannula 2.00 12/24/16 20:00 78 12/24/16 20:00 97.8 96 20 111/58 (75) 94 12/24/16 19:00 98 Nasal Cannula 2.00 12/24/16 17:15 93 Nasal Cannula 1.00 12/24/16 16:00 98.1 89 18 130/63 (85) 95 I/O 12/24/16 12/24/16 12/24/16 12/25/16 12/25/16 12/25/16 07:00 15:00 23:00 07:00 15:00 23:00 Intake Total 380 ml 50 ml 24 ml 60 ml Balance 380 ml 50 ml 24 ml 60 ml Intake Oral 380 ml 24 ml 60 ml Other 50 ml # Voids 3 3 4 # Bowel Movements 0 0 Result Diagram: 12/25/16 0725 12/24/16 0450 Objective Remarks Soft abdomen, nondistended, nontender Breathing is unlabored, coarse breath sounds bilaterally Heart sounds are regular rate and rhythm, no murmurs A/P Assessment and Plan Right lower lobe dense consolidation, postobstructive pneumonia Chest CT 12/20 showed a 6.8 cm lung mass with endobronchial component and surrounding consolidation and atelectasis with enlarged subcarinal and precarinal lymph nodes most consistent with a primary lung malignancy with mediastinal rachel metastasis. CT biopsy performed yesterday; pathology is pending; PTH related peptide is elevated pulmonology following the patient. Continue Ceftin, doxycycline by mouth nonsustained V-tach Undergoing stress test today Recent hematemesis - resolved Hemoglobin is stable Line Service Attendant was consulted for recommendations Status post EGD \showing duodenitis, esophagitis, gastritis. He does take Aleve and patient's was counseled he should avoid NSAIDs. Continue PPI. Rectal ulcer noted on flex sigmoid; avoid NSAIDS. ? etiology of constipation Constipation - likely 2/2 hyperCa, improved w/ Gastrografin enema. Treat hypercalcemia Severe hypercalcemia - partially improved. Probably due to the lung cancer. Vit D 25 OH is low, PTH level is actually low. PTH related peptide is elevated Hypophosphatemia. Continue K-Phos. Severe hypokalemia -resolved daily Kcl Hypertension. Stable Continue Norvasc. 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 Dementia. Continue reorientation. DVT prevention will start heparin Discussed plan with at bedside. Hunter Meraz MD Dec 25, 2016 13:28
[2016-12-25] MEDS ORDERED: HEPARIN SODIUM - SQ 10,000 UNITS/ML VIAL SQ SCH (14:00)
--- NOTE | 2016-12-25 14:49 | RADRPT ---
EXAM DATE/TIME: 12/25/2016 12:28 [facility] COMPARISON: No previous studies available for comparison. INDICATIONS : Mid chest pain with ventricular tachycardia. Abnormal EKG. DOSE: 26.2 mCi Tc99m Myoview at stress. 8.6 mCi Tc99m Myoview at rest. 0.4 mg Lexiscan STRESS SYMPTOMS: Shortness of breath and nausea. EJECTION FRACTION: > 70% MEDICAL HISTORY : Hypertension. Throat cancer. SURGICAL HISTORY : Abdominal aortic aneurysm repair. Total knee replacement, left. ENCOUNTER: Initial ACUITY: 1 day PAIN SCALE: 3/10 LOCATION: Midsternal chest TECHNIQUE: The patient underwent pharmacologic stress with infusion of prescribed dose. Continuous ECG tracing was monitored during stress. Gated SPECT imaging was performed after stress and conventional SPECT i maging was performed at rest. The examination was performed on a SPECT/CT scanner, both attenuation and non-corrected datasets were reviewed. Both the stress and rest exam was performed with the patie nt's arms down. FINDINGS: DISTRIBUTION: The maximum perfused segment at stress is in the inferolateral wall. PERFUSION STUDY: The pattern of perfusion at stress is within normal limits is regional variations in perfusion within 25%. Pattern of perfusion at stress and rest is unchanged; no evidence of redistribution. The summ ed stress score is zero. GATED STUDY: There is intact wall motion and thickening without hypokinetic or dyskinetic segments. CONCLUSION: 1. No evidence of stress-induced ischemia. 2. Intact wall motion with calculated ejection fraction greater than 70%. RISK CATEGORY: Low (<1% Annual Mortality Rate) Anthony Zepeda MD on December 25, 2016 at 14:45 Board Certified Radiologist. This report was verified electronically.
--- NOTE | 2016-12-25 17:37 | HHI.GIFU ---
GI Follow-up Note Consult Follow-up Subjective: Patient laying in bed comfortably, complainig about food ordered by his , states he s unable to chew .s/p Gastrografin enema -good results Objective: PHYSICAL EXAMINATION: Vitals signs stable No fever HEENT: Pupils round and reactive to light; normocephalic; atraumatic; no jaundice. Throat is clear. NECK: Neck is supple, no JVD, no lymphadenopathy. CHEST: Chest is clear to auscultation and percussion. CARDIAC: Regular rate and rhythm with no murmur gallop or rubs. ABDOMEN: Soft, nondistended, nontender; no hepatosplenomegaly; bowel sounds are present in all four quadrants. EXTREMITIES: No clubbing, cyanosis, or edema. SKIN: Normal; no rash; no jaundice. ASSISTANT CHIEF TRAIN DISPATCHER: No focal deficits; alert and oriented times three. Available Data (labs, X- Rays, Procedues) : Vital Signs Date Time Temp Pulse Resp B/P (MAP) Pulse Ox O2 Delivery O2 Flow Rate FiO2 12/25/16 16:06 97.2 80 15 115/69 (84) 98 12/25/16 12:00 98.5 88 24 135/65 (88) 97 Laboratory Tests Test 12/24/16 04:30 12/24/16 04:50 12/25/16 07:25 White Blood Count 9.4 TH/MM3 9.6 TH/MM3 Red Blood Count 3.62 MIL/MM3 3.57 MIL/MM3 Hemoglobin 9.9 GM/DL 9.9 GM/DL Hematocrit 30.6 % 30.2 % Mean Corpuscular Volume 84.8 FL 84.6 FL Mean Corpuscular Hemoglobin 27.3 PG 27.6 PG Mean Corpuscular Hemoglobin Concent 32.2 % 32.6 % Red Cell Distribution Width 14.8 % 14.4 % Platelet Count 269 TH/MM3 288 TH/MM3 Mean Platelet Volume 8.0 FL 8.4 FL Neutrophils (%) (Auto) 63.5 % 61.3 % Lymphocytes (%) (Auto) 20.4 % 22.2 % Monocytes (%) (Auto) 13.7 % 14.1 % Eosinophils (%) (Auto) 1.6 % 2.1 % Basophils (%) (Auto) 0.8 % 0.3 % Neutrophils # (Auto) 5.9 TH/MM3 5.9 TH/MM3 Lymphocytes # (Auto) 1.9 TH/MM3 2.1 TH/MM3 Monocytes # (Auto) 1.3 TH/MM3 1.4 TH/MM3 Eosinophils # (Auto) 0.2 TH/MM3 0.2 TH/MM3 Basophils # (Auto) 0.1 TH/MM3 0.0 TH/MM3 CBC Comment DIFF FINAL DIFF FINAL Differential Comment Blood Urea Nitrogen 15 MG/DL Creatinine 1.20 MG/DL Random Glucose 81 MG/DL Calcium Level 10.7 MG/DL Phosphorus Level 2.4 MG/DL Magnesium Level 1.8 MG/DL Sodium Level 138 MEQ/L Potassium Level 4.2 MEQ/L Chloride Level 105 MEQ/L Carbon Dioxide Level 24.8 MEQ/L Anion Gap 8 MEQ/L Estimat Glomerular Filtration Rate 58 ML/MIN ASSESSMENT/PLAN: [id number] negative fecal impaction -s/p Gastrografin enema -resolved rectal ulcer secondary fecal impaction constipation poor oral intake unable to chew Recommendations soft diet nutritional consult stool softeners lactulose bid hydrocortisone supp ppi avoid nsaids if not better consider peg tube It was a pleasure seeing Joseph Jordan Thank you for this consult. Entered by: Maya Ordoñez MD Dec 25, 2016 17:37
[2016-12-25] MEDS: POLYETHYLENE GLYCOL 17 GM PKG PO SCH (19:11)
[2016-12-25] MEDS: HYDROCORTISONE ACETATE 25 MG SUPP RECTAL SCH (21:00)
[2016-12-26] VITALS (7 sets, daily range): BP systolic 111–146; BP diastolic 70–78; PULSE 76–104; RESP 16–20; TEMP 96.1–98.3; O2SAT 93–100
[2016-12-26] MEDS: HEPARIN SODIUM - SQ 10,000 UNITS/ML VIAL SQ SCH ×3 (06:15→22:36)
[2016-12-26 06:20] LABS: ALBUMIN 2.4 GM/DL (3.4-5.0)
[2016-12-26 06:38] LABS: BICARBONATE 28.1 MEQ/L (21.0-32.0); CALCIUM 11.5 MG/DL (8.5-10.1); CREATININE 1.2 MG/DL (0.60-1.30)
[2016-12-26] MEDS: POLYETHYLENE GLYCOL 17 GM PKG PO SCH (09:00)
[2016-12-26] MEDS: LACTULOSE SYRUP 20 GM/30 ML CUP PO SCH (09:00)
[2016-12-26] MEDS: amLODIPine BESYLATE 5 MG TAB PO SCH (09:52)
[2016-12-26] MEDS: DOCUSATE SODIUM 100 MG CAP PO SCH ×2 (09:52→22:35)
[2016-12-26] MEDS: PANTOPRAZOLE SOD 40 MG DELAYED RELEASE TAB PO SCH (09:52)
[2016-12-26] MEDS: MULTIVITAMIN TAB PO SCH (09:52)
[2016-12-26] MEDS: METOPROLOL TARTRATE 25 MG TAB PO SCH ×2 (09:52→22:34)
[2016-12-26] MEDS: CEFUROXIME AXETIL 500 MG TAB PO SCH ×2 (09:52→22:36)
[2016-12-26] MEDS: PRAVASTATIN SOD 20 MG TAB PO SCH (09:53)
[2016-12-26] MEDS: POTASSIUM PHOSPHATE MONOBASIC 500 MG TAB PO SCH ×2 (09:53→22:33)
[2016-12-26] MEDS: GABAPENTIN 100 MG CAP PO SCH ×3 (09:53→16:20)
[2016-12-26] MEDS: DOXYCYCLINE HYCLATE 100 MG TAB PO SCH ×2 (09:53→22:40)
[2016-12-26] MEDS: POTASSIUM CHLORIDE 10 MEQ CONTROLLED RELEASE TAB PO SCH ×2 (09:53→22:34)
[2016-12-26] MEDS: HYDROCORTISONE ACETATE 25 MG SUPP RECTAL SCH ×2 (09:54→21:00)
[2016-12-26] MEDS: SODIUM CHLORIDE 0.9% FLUSH 10 ML FLUSH IV FLUSH SCH ×2 (09:54→22:41)
--- NOTE | 2016-12-26 11:56 | HHI.PR ---
Subjective Remarks RN denies any deterioration since last night. Discussed with Dr. 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 Patient not reporting any complaints. Tolerating by mouth intake but feels that his appetite is low. No bloody stools Objective Vital Signs Date Time Temp Pulse Resp B/P (MAP) Pulse Ox O2 Delivery O2 Flow Rate FiO2 12/26/16 08:00 96.1 84 18 139/74 (95) 93 12/26/16 04:00 97.3 85 20 128/78 (95) 98 12/26/16 00:00 97.4 76 18 142/77 (98) 96 12/25/16 23:18 97 Nasal Cannula 2.00 12/25/16 20:00 96.8 85 18 122/76 (91) 99 12/25/16 20:00 93 12/25/16 20:00 Nasal Cannula 2.00 12/25/16 16:06 97.2 80 15 115/69 (84) 98 12/25/16 12:00 98.5 88 24 135/65 (88) 97 I/O 12/25/16 12/25/16 12/25/16 12/26/16 12/26/16 12/26/16 07:00 15:00 23:00 07:00 15:00 23:00 Intake Total 60 ml 120 ml 240 ml Balance 60 ml 120 ml 240 ml Intake Oral 60 ml 120 ml 240 ml # Voids 4 8 2 # Bowel Movements 0 6 1 Result Diagram: 12/25/16 0725 12/26/16 0537 Objective Remarks Soft abdomen, nondistended, nontender Breathing is unlabored, coarse breath sounds bilaterally Heart sounds are regular rate and rhythm, no murmurs A/P Assessment and Plan -Right lower lobe dense consolidation, postobstructive pneumonia Chest CT 12/20 showed a 6.8 cm lung mass with endobronchial component and surrounding consolidation and atelectasis with enlarged subcarinal and precarinal lymph nodes most consistent with a primary lung malignancy with mediastinal rachel metastasis. CT biopsy showing [facility], consulting oncology, w/ paraneoplastic PTHrp elevated pulmonology following the patient. Continue Ceftin, doxycycline by mouth -nonsustained V-tach stress test negative. -Recent hematemesis - resolved Hemoglobin is stable Evp Chief Exploration Officer was consulted for recommendations Status post EGD \showing duodenitis, esophagitis, gastritis. He does take Aleve and patient's was counseled he should avoid NSAIDs. Continue PPI. -Rectal ulcer noted on flex sigmoid; avoid NSAIDS. ? etiology of constipation Constipation - likely 2/2 hypercalcemia, continue stool softeners -hypercalcemia - partially improved. Probably due to the lung cancer. Vit D 25 OH is low, PTH level is actually low. PTH related peptide is elevated -Hypophosphatemia. Continue K-Phos. -hypokalemia -resolved daily Kcl Hypertension. Stable Continue Norvasc. 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 Dementia. Continue reorientation. DVT prevention heparin Discussed plan with at bedside. Hunter Meraz MD Dec 26, 2016 11:56
[2016-12-26] MEDS ORDERED: PAMIDRONATE INJ 90 MG in SODIUM CHLORID 0.9% 500 ML INJ 500 ML IV ONE (14:00)
--- NOTE | 2016-12-26 14:19 | PD.PSY.CON ---
Provisional Diagnosis Admission Date Dec 17, 2016 at 23:03 [place]. Dementia History of Present Illness Service Psychiatry Consult Requested By Medical team Reason for Consult Treatment of dementia Primary Care Physician Riki Cavazos MD HPI The patient is a 81 years old man, domicile with in [place], no previous psychiatric history, no previous suicidal attempts, hospitalized due to Right lower lobe dense consolidation, postobstructive pneumonia . Chest CT showed a 6.8 cm lung mass with endobronchial component and surrounding consolidation and atelectasis with enlarged subcarinal and precarinal lymph nodes most consistent with a primary lung malignancy with mediastinal rachel metastasis. CT biopsy showing SQCC, consulting oncology, w/ paraneoplastic PTHrp elevated. She history of throat cancer. Consulted to psychiatry for management of dementia. On psychiatric evaluation today patient is calm, superficially cooperative. He is in a good spirit, described his mood as good, he denies depressive symptoms, he denies anxiety. Patient denies suicidal and homicidal ideation, visual and auditory lacerations. There is no evidence of significant paranoia, delusions, ideas of reference, agitation or aggressive behavior. Patient is alert, oriented in place, but is oriented in person, he says that is January 2016. Patient denies the use of alcohol and illicit drugs. As per report from nurse in charge, patient had a good night last night , there is no agitation or aggressive behavior reported. - Review of Systems Except as stated in HPI: all other systems reviewed are Neg Past Family Social History Coded Allergies: No Known Allergies (Unverified , 12/17/16) Reported Medications Sennosides-Docusate Sodium (Senna-Plus) 8.6-50 Mg Tab, 1 TAB PO DAILY for Constipation, TAB 0 Refills 12/17/16 Ferrous Sulfate ER (Slow Release Iron ER) 168 Mg (50 Mg Iron) Tab, 50 MG PO DAILY for Nutritional Supplement, TAB 0 Refills 12/17/16 Cholecalciferol (Vitamin D-1000) 1,000 Unit Tab, 1000 UNITS PO DAILY for Nutritional Supplement, #1 BOTTLE 0 Refills 12/17/[address] (Aspirin EC) 81 Mg Tabdr, 81 MG PO DAILY, TAB 0 Refills 12/17/16 Multiple Vitamin (Multiple Vitamin) 1 Tab, 1 TAB PO DAILY for Nutritional Supplement, TAB 0 Refills 12/17/16 Amlodipine (Amlodipine) 5 Mg Tab, 5 MG PO DAILY for Blood Pressure Management, # 30 TAB 0 Refills 12/17/16 Simvastatin (Simvastatin) 10 Mg Tab, 10 MG PO DAILY for Cholesterol Management, #30 TAB 0 Refills 12/17/16 Current Medications Medications (Trade) Dose Ordered Sig/Ehsan Route Start Time Stop Time Status Last Admin (NS Flush) 2 ml UNSCH PRN IV FLUSH 12/17/16 23:00 (NS Flush) 2 ml BID IV FLUSH 12/18/16 09:00 12/26/16 09:54 (Narcan Inj) 0.4 mg UNSCH PRN IV PUSH 12/17/16 23:00 (Norvasc) 5 mg DAILY PO 12/18/16 18:15 12/26/16 09:52 (Theragran) 1 tab DAILY PO 12/18/16 18:30 12/26/16 09:52 (Pravachol) 20 mg DAILY PO 12/18/16 18:30 12/26/16 09:53 (Colace) 100 mg BID PO 12/19/16 23:15 12/26/16 09:52 (K-Phos) 1,000 mg Q12HR PO 12/21/16 13:00 12/26/16 09:53 (Protonix) 40 mg DAILY PO 12/21/16 13:00 12/26/16 09:52 (Mylicon Chew) 80 mg PCHS PRN CHEW 12/21/16 13:15 12/22/16 08:41 (KCl) 20 meq Q12HR PO 12/21/16 21:00 12/26/16 09:53 (Lopressor) 25 mg Q12HR PO 12/23/16 09:00 12/26/16 09:52 (Vibratab) 100 mg Q12HR PO 12/23/16 09:00 12/26/16 09:53 (Ceftin) 500 mg Q12HR PO 12/23/16 09:00 12/26/16 09:52 (Zofran Inj) 4 mg Q8H PRN IV PUSH 12/24/16 15:00 (Neurontin) 100 mg TID PO 12/24/16 18:00 12/26/16 09:53 (Tylenol) 500 mg Q6H PRN PO 12/24/16 17:45 (Ultram) 50 mg Q8H PRN PO 12/24/16 17:45 (Heparin Inj) 5,000 units Q8HR SQ 12/24/16 22:00 12/26/16 06:15 (Hemorrhoidal Hc Supp) 25 mg BID RECTAL 12/25/16 21:00 12/26/16 09:54 (Lactulose Liq) 30 ml DAILY PO 12/26/16 09:00 (Miralax) 17 gm DAILY PO 12/25/16 18:30 12/25/16 19:11 (Remeron) 15 mg HS PO 12/26/16 21:00 Pamidronate Disodium 90 mg/ Sodium Chloride 500 ml @ 125 mls/hr ONCE ONCE IV 12/26/16 14:00 12/26/16 17:59 Physical Exam Vital Signs Vital Signs Date Time Temp Pulse Resp B/P (MAP) Pulse Ox O2 Delivery O2 Flow Rate FiO2 12/26/16 12:00 97.1 96 20 139/70 (93) 100 12/25/16 23:18 Nasal Cannula 2.00 I/O 12/26/16 12/26/16 12/27/16 08:00 16:00 00:00 Intake Total 240 ml Balance 240 ml Lab Results Test 12/26/16 05:37 Blood Urea Nitrogen 19 MG/DL Creatinine 1.20 MG/DL Random Glucose 92 MG/DL Albumin 2.4 GM/DL Calcium Level 11.5 MG/DL Sodium Level 137 MEQ/L Potassium Level 4.5 MEQ/L Chloride Level 104 MEQ/L Carbon Dioxide Level 28.1 MEQ/L Anion Gap 5 MEQ/L Estimat Glomerular Filtration Rate 58 ML/MIN Date/Time Source Procedure Growth Status 12/17/16 21:10 Urine Clean Catch Urine Culture - Final 50-100,000 CFU/ML MIXED GRAM POSITIVE... Complete Mental Status Examination Appearance: Appropriate Consciousness: Alert Orientation: Person, Place Motor Activity: Normal gait Speech: Unremarkable Language: Adequate Fund of Knowledge: Adequate Attention and Concentration: Adequate Memory: Unremarkable Mood: Appropriate Affect: Appropriate Thought Process & Associations: Intact Thought Content: Appropriate Hallucination Type: None Delusion Type: None Suicidal Ideation: No Suicidal Plan: No Suicidal Intention: No Homicidal Ideation: No Homicidal Plan: No Homicidal Intention: No Insight: Adequate Judgment: Adequate Assessment & Plan Problem List: (1) Dementia ICD Codes: F03.90 - Unspecified dementia without behavioral disturbance Assessment & Plan: Patient doesn't present with objective or subjective symptomatology of depression, anxiety, fanny or psychosis. She denies suicidal and homicidal ideation, he denies visual and auditory hallucinations. Memory deficits present throughout the evaluation, patient is oriented in person and partially oriented in place, but disoriented in time, he also have improving and recent and immediate recall which could be congruent with ongoing dementia process. Patient would benefit of Aricept 10 mg was lowered the dementia deterioration, but I do not see reason to start the patient in antidepressants or antipsychotics. Motivation, support and psychoeducation provided. Patient does not meet criteria for psychiatric admission at this moment. Assessment & Plan Estimated LOS: days Problem Qualifiers (1) Dementia: Bakari Abdullahi MD Dec 26, 2016 14:19
[2016-12-26] MEDS: DONEPEZIL HCL 5 MG TAB PO SCH (16:21)
--- NOTE | 2016-12-26 18:17 | MB ---
cc: LAI CAMPOS RICHARD D. MD LATIF, ZAFAR DATE OF CONSULTATION 12/26/16 1933 REQUESTING PHYSICIAN Consult requested by the hospitalist service. PRIMARY CARE PHYSICIAN Dr. Riki Cavazos REASON FOR CONSULTATION Squamous cell carcinoma of suspected lung primary. 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 CHIEF COMPLAINT Mr. Jordan was brought into the emergency department by his due to progressive fatigue, weakness and nausea. HISTORY OF PRESENT ILLNESS Mr. Jordan is a very pleasant 81-year-old male with a greater than 70 pack-year history of smoking. Mr. Jordan is known to [facility] for his previous history of laryngeal squamous cell carcinoma which was treated in the spring with single modality radiation by Dr. Lai Campos. Mr. Jordan had been in his usual fair state of health up until September of 2016. His reports that both she and her both went on a cruise in September and he had been apparently well. Over the past few weeks, the patient was noted to be increasingly fatigued, chronically nauseated and had been having difficulty holding down foods and liquids. The patient had been increasingly drowsy in the days leading up to this hospitalization as well. On 12/17/16, the patient was brought into [facility] for further evaluation. His major symptoms were that of nausea and vomiting. He underwent a CT scan of the abdomen and pelvis and was noted to have a dense right lower lobe parenchymal consolidation/mass. They were no acute intra-abdominal findings identified. A CT scan of the thorax ensued on 12/20/2016 and the patient was found to have a 6.8 cm mass in the right lower lobe of the lung with what appeared to be an endobronchial component with surrounding consolidation and atelectasis. Enlarged subcarinal and precarinal lymph nodes were also identified. A CT-guided biopsy of the lung lesion was performed on 12/23/2016 and pathologic findings were consistent with squamous cell carcinoma. Additionally, the patient has been noted to be hypercalcemic over the course of this hospitalization and this has been treated with intravenous fluids. The oncology service has been asked to see this patient for further workup and management of what appears to be a primary lung malignancy with associated hypercalcemia of malignancy. PAST MEDICAL HISTORY 1. Extensive personal history of tobaccoism (greater than 70 pack years). 2. Abdominal aortic aneurysm. 3. Hypertension. 4. Hyperlipidemia. 5. Personal history of laryngeal squamous cell carcinoma diagnosed and treated in the spring. PAST SURGICAL HISTORY 1. Intra-abdominal aortic stent placement. 2. Multiple back and neck surgeries. 3. Left knee replacement 4. Laryngeal biopsy. FAMILY HISTORY Parents are both . They of complications of diabetes and atherosclerotic arterial disease. The patient had one brother with a diagnosis of gastric cancer. He is now . One sister with a diagnosis of lung cancer, she is . One sister with a diagnosis of breast cancer who is living and another brother with an MD. ALLERGIES GABAPENTIN to which he has reactions. SOCIAL HISTORY The patient lives at home with his . They have been for about 40 years. They have two adult daughters. 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 MEDICATIONS Current inpatient 1. Pamidronate 90 mg x1. 2. Tylenol 650 mg IV p.o. q.6 h as needed for pain. 3. Amlodipine 5 mg p.o. daily. 4. Ceftin 500 mg p.o. q.12 h. 5. Colace 100 mg p.o. b.i.d. 6. Aricept 10 mg p.o. daily. 7. Doxycycline 100 mg p.o. q.4 h 9. Heparin 5000 units subcu q.8 h. 10. Hydrocortisone 25 mg per rectum b.i.d. 11. Lactulose 30 mL p.o. daily. 12. Metoprolol 25 mg p.o. q.12 h 13. Mirtazapine 15 mg p.o. q.h.s. 14. Multivitamin 1 tablet p.o. daily. 15. Zofran 4 mg IV q.8 h 16. Pantoprazole 40 mcg p.o. daily. 17. Potassium chloride 20 mEq p.o. q.12 h 18. Pravastatin 20 mg p.o. daily. 19. Tramadol 50 mg p.o. q.8 h as needed for pain. REVIEW OF SYSTEMS A 13-point review of systems is obtained. The following are the pertinent positives and negatives: CONSTITUTIONAL: The patient reports progressive fatigue, weakness, loss of appetite, weight loss. The patient's reports generalized confusion. HEENT: Denies headaches, blurry vision, reports dryness in the mouth, denies difficulty swallowing or soreness in the throat. No complaints of epistaxis. RESPIRATORY: Exertional dyspnea, cough without hemoptysis, no reported pleuritic chest pain. CARDIOVASCULAR: Denies angina-like chest pain, PND, orthopnea or lower extremity edema. GI: Reports nausea, vomiting, decreased appetite, weight loss. Denies hematochezia or melena. : Denies dysuria, hematuria, urinary incontinence. DESIGN ENGINEER: Reports generalized weakness, confusion. PHYSICAL EXAMINATION VITAL SIGNS: Temperature 96.4 degrees Fahrenheit, heart rate 104 beats per minute, respiratory rate 20, blood pressure 111/972, O2 sats are 93% on 2 liters nasal cannula. GENERAL APPEARANCE: Mr. Jordan is an elderly male. he is laying in bed. He is awake and alert. His is at bedside. He looks to his for assistance with some of the questions I ask. HEENT: Head atraumatic, normocephalic, conjunctivae are pale, sclerae are anicteric, EOMI, PERRLA, oral exam no pharyngeal erythema. NECK: No palpable cervical or supraclavicular lymphadenopathy. RESPIRATORY: Good air movement bilaterally. No added breath sounds. CARDIOVASCULAR: Regular rate and rhythm, S1-S2. No obvious murmurs, rubs or gallops. ABDOMEN: Thin belly, soft and nontender, nondistended. No palpable organ enlargement. LOWER EXTREMITIES: No pretibial edema or calf tenderness. SKIN: Appears to be generally dry. LABORATORY FINDINGS Blood work dated 12/26/2016: Sodium 137, potassium 4.5, chloride 104, bicarb 28, BUN 19, creatinine 1.2, EGFR 58, calcium 11.5, phosphate 2.4, albumin 2.4. CBC: WBC count 9.6, hemoglobin 9.9 gm/dl, hematocrit 30%, platelet count 288, absolute neutrophil count 5.9. IMAGING STUDIES A cardiac perfusion scan dated 12/25/2016: No evidence of stress-induced ischemia, intact wall motion with LVEF of 70%. CT scan of the thorax dated 12/20/2016: Indicates 6.8 cm mass in the right lower lobe with endobronchial component and surrounding consolidation and atelectasis. Enlarged subcarinal and precarinal lymph nodes. Findings are most characteristic of a primary lung malignancy with mediastinal and rachel metastases. No effusion is noted. Mass would be amendable to transthoracic needle biopsy. Pathology: Lung biopsy dated 12/23/2016: Right lung CT-guided core biopsy - Poorly differentiated squamous cell carcinoma. Rectal biopsy dated 12/24/2016 indicates no evidence of malignancy. There appears to be findings consistent with an ulcer base given the fibropurulent exudate. Additional upper GI biopsies including biopsies of the duodenum, antrum and distal esophagus: Indicate findings of gastritis and chronic inflammation. ASSESSMENT Mr. Jordan is an 81-year-old male with an extensive past history of tobaccoism. 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 This was treated with single modality radiation because it was a stage I tumor. He had been routinely following up with Dr. Campos of radiation oncology and had been in remission, as evidenced by clinical exam and direct visualization of the upper aerodigestive tract. Over the past few weeks, he had been increasingly fatigued. He had increasing nausea and vomiting and had been progressively confused. His brought him into the emergency department for further workup and management. He underwent a GI workup because he was found to be anemic and there were endoscopic findings of gastritis and also a colonoscopy revealed a rectal ulcer. Imaging studies of the thorax, however, revealed a 7 cm mass involving the right lower lobe of the lung. There appeared to be an endobronchial component and there was also evidence of mediastinal lymph node involvement. Image guided biopsy of the right lung mass revealed findings consistent with poorly differentiated squamous cell carcinoma. Given the distribution of the tumor and the lymph nodes, it appears this is most consistent with a primary lung malignancy as opposed to metastatic disease from his laryngeal squamous cell carcinoma. The oncology service has been asked to see him for further workup and management of both his malignancy as well as underlying hypercalcemia of malignancy as well. RECOMMENDATIONS 1. Hypercalcemia of malignancy: I have ordered pamidronate 90 mg IV x1 over 4 hours for management of hypercalcemia of malignancy. Continue IV fluid hydration. 2. 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 He is not a candidate for surgical resection. I did talk to the patient and his about the diagnosis. I explained to them that although both his laryngeal cancer and now the lung cancer are both smoking related, I explained to them that the laryngeal cancer likely did not result in the squamous cell carcinoma of the lung or vice versa. I have advised an outpatient PET CT scan to further stage him. His treatment options will be determined based on his baseline performance status as well as his ability to tolerate treatment. Ordinarily, individuals with stage III [id number] lung carcinoma are treated with concurrent chemoradiotherapy followed by consolidation chemotherapy and possibly by maintenance immunotherapy with Durvalumab. However Mr. Jordan may be a suboptimal candidate for such an aggressive approach given his poor functional reserve and poor performance status. He is very frail. I will follow along periodically and will schedule an outpatient follow-up visit. MD EVENS Jimenez/ /5:11 PM /5:36 PM MTDIgnacia
[2016-12-26] MEDS ORDERED: MIRTAZAPINE 15 MG TAB PO SCH (21:00)
[2016-12-27] VITALS (10 sets, daily range): BP systolic 112–157; BP diastolic 70–85; PULSE 70–98; RESP 14–18; TEMP 96.9–99.8; O2SAT 93–100
[2016-12-27] MEDS: HEPARIN SODIUM - SQ 10,000 UNITS/ML VIAL SQ SCH ×3 (05:21→22:59)
[2016-12-27] MEDS: POLYETHYLENE GLYCOL 17 GM PKG PO SCH (09:00)
[2016-12-27] MEDS: GABAPENTIN 100 MG CAP PO SCH ×2 (09:00→09:19)
[2016-12-27] MEDS: POTASSIUM PHOSPHATE MONOBASIC 500 MG TAB PO SCH ×2 (09:17→21:00)
[2016-12-27] MEDS: MULTIVITAMIN TAB PO SCH (09:17)
[2016-12-27] MEDS: CEFUROXIME AXETIL 500 MG TAB PO SCH ×2 (09:17→21:00)
[2016-12-27] MEDS: LACTULOSE SYRUP 20 GM/30 ML CUP PO SCH (09:17)
[2016-12-27] MEDS: POTASSIUM CHLORIDE 10 MEQ CONTROLLED RELEASE TAB PO SCH ×2 (09:17→21:00)
[2016-12-27] MEDS: PRAVASTATIN SOD 20 MG TAB PO SCH (09:17)
[2016-12-27] MEDS: DOCUSATE SODIUM 100 MG CAP PO SCH ×2 (09:17→21:00)
[2016-12-27] MEDS: amLODIPine BESYLATE 5 MG TAB PO SCH (09:17)
[2016-12-27] MEDS: HYDROCORTISONE ACETATE 25 MG SUPP RECTAL SCH ×2 (09:17→22:59)
[2016-12-27] MEDS: DOXYCYCLINE HYCLATE 100 MG TAB PO SCH ×2 (09:18→21:00)
[2016-12-27] MEDS: PANTOPRAZOLE SOD 40 MG DELAYED RELEASE TAB PO SCH (09:18)
[2016-12-27] MEDS: DONEPEZIL HCL 5 MG TAB PO SCH (09:18)
[2016-12-27] MEDS: METOPROLOL TARTRATE 25 MG TAB PO SCH ×2 (09:18→21:00)
[2016-12-27] MEDS: SODIUM CHLORIDE 0.9% FLUSH 10 ML FLUSH IV FLUSH SCH ×2 (09:19→21:00)
[2016-12-27 10:11] LABS: BICARBONATE 30.8 MEQ/L (21.0-32.0); CALCIUM 11.7 MG/DL (8.5-10.1); CREATININE 1.3 MG/DL (0.60-1.30)
[2016-12-27 10:25] LABS: CALCIUM-PROTEIN CORRECTED 11.4 MG/DL (8.5-10.1); TOTAL PROTEIN 7.6 GM/DL (6.4-8.2)
--- NOTE | 2016-12-27 10:26 | HHI.GIFU ---
Subjective Remarks Patient is laying in bed, no significant complaint at this time had bowel movements yesterday Objective Vitals I&O Vital Signs Date Time Temp Pulse Resp B/P (MAP) Pulse Ox O2 Delivery O2 Flow Rate FiO2 12/27/16 09:51 97.5 89 18 128/78 (95) 96 12/27/16 08:00 97.7 85 16 133/76 (95) 93 12/27/16 07:55 97 Nasal Cannula 2.00 12/27/16 07:50 Nasal Cannula 2.00 12/27/16 04:00 96.9 92 16 142/77 (98) 100 12/27/16 00:00 97.6 85 16 142/82 (102) 97 12/26/16 21:00 96 Nasal Cannula 2.00 12/26/16 20:00 97 12/26/16 20:00 98.3 94 16 146/78 (100) 98 12/26/16 20:00 Nasal Cannula 2.00 12/26/16 16:12 Nasal Cannula 2.00 12/26/16 16:00 96.4 104 20 111/72 (85) 93 12/26/16 12:00 97.1 96 20 139/70 (93) 100 I/O 12/26/16 12/26/16 12/26/16 12/27/16 12/27/16 12/27/16 07:00 15:00 23:00 07:00 15:00 23:00 Intake Total 240 ml 620 ml Balance 240 ml 620 ml Intake Oral 240 ml 120 ml IV Total 500 ml # Voids 2 5 1 # Bowel Movements 1 2 1 Laboratory Laboratory Tests Test 12/27/16 08:40 Blood Urea Nitrogen 18 Creatinine 1.30 Random Glucose 98 Calcium Level 11.7 Sodium Level 141 Potassium Level 4.6 Chloride Level 105 Carbon Dioxide Level 30.8 Anion Gap 5 Estimat Glomerular Filtration Rate 53 Date/Time Source Procedure Growth Status 12/17/16 21:10 Urine Clean Catch Urine Culture - Final 50-100,000 CFU/ML MIXED GRAM POSITIVE... Complete Physical Exam HEENT: normocephalic; NECK: Neck is supple CHEST: Chest is clear to auscultation and percussion. CARDIAC: Regular rate and rhythm with no murmur gallop or rubs. ABDOMEN: Soft, nondistended, nontender; no hepatosplenomegaly; bowel sounds are present in all four quadrants. EXTREMITIES: No clubbing, cyanosis, or edema. SKIN: Normal; no rash; no jaundice. 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
--- NOTE | 2016-12-27 13:14 | HHI.PR ---
Subjective Remarks Per nursing, no reports of any deterioration since last night except for the patient having fallen on his own. says that some family members that were early in the room said he vomited - this was not reported to me by nursing . is concerned that he is more confused, now delusional. She is concerned that he is not eating enough Objective Vital Signs Date Time Temp Pulse Resp B/P (MAP) Pulse Ox O2 Delivery O2 Flow Rate FiO2 12/27/16 11:29 97.7 95 17 112/70 (84) 95 12/27/16 09:51 97.5 89 18 128/78 (95) 96 12/27/16 08:00 97.7 85 16 133/76 (95) 93 12/27/16 07:55 97 Nasal Cannula 2.00 12/27/16 07:50 Nasal Cannula 2.00 12/27/16 04:00 96.9 92 16 142/77 (98) 100 12/27/16 00:00 97.6 85 16 142/82 (102) 97 12/26/16 21:00 96 Nasal Cannula 2.00 12/26/16 20:00 97 12/26/16 20:00 98.3 94 16 146/78 (100) 98 12/26/16 20:00 Nasal Cannula 2.00 12/26/16 16:12 Nasal Cannula 2.00 12/26/16 16:00 96.4 104 20 111/72 (85) 93 I/O 12/26/16 12/26/16 12/26/16 12/27/16 12/27/16 12/27/16 07:00 15:00 23:00 07:00 15:00 23:00 Intake Total 240 ml 620 ml Balance 240 ml 620 ml Intake Oral 240 ml 120 ml IV Total 500 ml # Voids 2 5 1 # Bowel Movements 1 2 1 Result Diagram: 12/25/16 0725 12/27/16 0840 Objective Remarks Soft abdomen, nondistended, mild abd tenderness on deep palpation diffusely Breathing is unlabored, coarse breath sounds bilaterally appears fatigued, confused, not fully oriented, only oriented to person A/P Assessment and Plan -Right lower lobe dense consolidation, postobstructive pneumonia Continue Ceftin, doxycycline by mouth -Chest CT 12/20 showed a 6.8 cm lung mass with endobronchial component and surrounding consolidation and atelectasis with enlarged subcarinal and precarinal lymph nodes most consistent with a primary lung malignancy with mediastinal rachel metastasis. CT biopsy showing SQCC, consulting oncology, w/ paraneoplastic PTHrp elevated heme/con following pt, appreciate recs, started bisphosphonate yesterday to help control hypercalcemia Confusion - suspect hospital induced delirium, hypercalcemia - counseled that this could be expected more in the future Poor by mouth intake - Was started on Remeron yesterday, but still has no significant change in this , we'll start a calorie count - We'll touch base with hematology oncology to see if patient is a candidate for Periactin -Recent hematemesis - resolved Hemoglobin is stable Deputy Chief Counsel was consulted for recommendations Status post EGD \showing duodenitis, esophagitis, gastritis. He does take Aleve and patient's was counseled he should avoid NSAIDs. Continue PPI. constipation - likely 2/2 hypercalcemia, continue stool softeners; s/p barium enema -hypercalcemia - relapsed again, received 1 dose of bisphosphonate for hypercalcemia of malignancy -Hypophosphatemia. Continue K-Phos. -hypokalemia -resolved daily Kcl Hypertension. Stable Continue Norvasc. 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 Dementia. Continue reorientation. DVT prevention heparin Discussed plan with at bedside. Hunter Meraz MD Dec 27, 2016 13:14
[2016-12-27] MEDS ORDERED: SODIUM CHLOR 0.9% 1000 ML INJ 1,000 ML IV ONE (14:15)
[2016-12-27] MEDS: DEXT 5%-NACL 0.45% 1000 ML INJ 1,000 ML IV SCH (14:26)
[2016-12-27] MEDS: MEGESTROL ACETATE 40 MG TAB PO SCH ×2 (14:28→21:00)
[2016-12-28] VITALS (12 sets, daily range): BP systolic 112–149; BP diastolic 59–88; PULSE 65–98; RESP 12–18; TEMP 97–98; O2SAT 93–96
[2016-12-28] MEDS: HEPARIN SODIUM - SQ 10,000 UNITS/ML VIAL SQ SCH ×3 (06:00→20:11)
--- NOTE | 2016-12-28 08:54 | HHI.GIFU ---
Subjective Remarks Patient was seen and examined, laying in bed sleeping seems to be comfortable, reported that the patient had a bad night where he had a fall and he was very agitated also had calcium imbalance most likely related to his, also reported some nausea, not eating very well according to the nursing staff Objective Vitals I&O Vital Signs Date Time Temp Pulse Resp B/P (MAP) Pulse Ox O2 Delivery O2 Flow Rate FiO2 12/28/16 04:27 65 122/76 (91) 12/28/16 00:10 97.3 72 12 112/88 (96) 93 12/27/16 20:00 Nasal Cannula 2.00 12/27/16 20:00 97.7 70 14 139/85 (103) 98 12/27/16 19:43 98 Nasal Cannula 2.00 12/27/16 16:00 97.1 98 18 157/73 (101) 99 12/27/16 12:00 97.7 95 17 112/70 (84) 95 12/27/16 12:00 99.8 98 18 116/78 (91) 95 12/27/16 11:29 97.7 95 17 112/70 (84) 95 12/27/16 09:51 97.5 89 18 128/78 (95) 96 I/O 12/27/16 12/27/16 12/27/16 12/28/16 12/28/16 12/28/16 07:00 15:00 23:00 07:00 15:00 23:00 Intake Total 620 ml 180 ml 548 ml Balance 620 ml 180 ml 548 ml Intake Oral 120 ml 180 ml IV Total 500 ml 548 ml # Voids 1 1 3 # Bowel Movements 1 2 1 Laboratory Date/Time Source Procedure Growth Status 12/17/16 21:10 Urine Clean Catch Urine Culture - Final 50-100,000 CFU/ML MIXED GRAM POSITIVE... Complete Physical Exam HEENT: normocephalic; NECK: Neck is supple CHEST: Chest is clear to auscultation and percussion. CARDIAC: Regular rate and rhythm with no murmur gallop or rubs. ABDOMEN: Soft, nondistended, nontender; no hepatosplenomegaly; bowel sounds are present in all four quadrants. EXTREMITIES: No clubbing, cyanosis, or edema. SKIN: Normal; no rash; no jaundice. SOCIAL WORKER: No focal deficits; alert Assessment and Plan Plan N/V,hematemesis resolved on EGD esophagitis,gastritis, and duodenitis Reports of melanic stool Complaints of rectal pain Flexible sigmoidoscopy was done today FINDINGS: Stool impaction I had to digitally disimpact the patient Rectal ulcer biopsy was done 12/27/2016 patient is stable according to the nurse he is eating reasonably well , he is getting suppositories for rectal ulcer 12/28/2016 patient is doing okay now but he had nausea and a fall yesterday also calcium imbalance most likely related to his tumor PLAN: Avoid constipation Stool softener Continue suppositories Continue soft diet we will obtain calorie count and if he is not eating well we will consider doing a PEG tube Shamika Simmons MD Dec 28, 2016 08:54
[2016-12-28] MEDS: POLYETHYLENE GLYCOL 17 GM PKG PO SCH (09:00)
[2016-12-28] MEDS: HYDROCORTISONE ACETATE 25 MG SUPP RECTAL SCH ×3 (09:00→20:11)
[2016-12-28] MEDS: LACTULOSE SYRUP 20 GM/30 ML CUP PO SCH (09:00)
[2016-12-28] MEDS: CEFUROXIME AXETIL 500 MG TAB PO SCH ×3 (09:00→20:12)
[2016-12-28] MEDS: DOXYCYCLINE HYCLATE 100 MG TAB PO SCH (09:00)
[2016-12-28] MEDS: PRAVASTATIN SOD 20 MG TAB PO SCH ×2 (09:00→10:21)
[2016-12-28] MEDS: POTASSIUM CHLORIDE 10 MEQ CONTROLLED RELEASE TAB PO SCH ×3 (09:00→20:13)
[2016-12-28] MEDS: DOCUSATE SODIUM 100 MG CAP PO SCH ×2 (09:00→20:12)
[2016-12-28] MEDS: POTASSIUM PHOSPHATE MONOBASIC 500 MG TAB PO SCH ×3 (09:00→20:12)
[2016-12-28] MEDS: GABAPENTIN 100 MG CAP PO SCH ×3 (09:00→10:53)
[2016-12-28] MEDS: SODIUM CHLORIDE 0.9% FLUSH 10 ML FLUSH IV FLUSH SCH ×2 (09:00→20:10)
[2016-12-28] MEDS: MULTIVITAMIN TAB PO SCH ×2 (09:00→10:21)
[2016-12-28 09:48] LABS: BICARBONATE 27.1 MEQ/L (21.0-32.0); CALCIUM 10.9 MG/DL (8.5-10.1)
[2016-12-28 09:52] LABS: CREATININE 1.2 MG/DL (0.60-1.30)
[2016-12-28] MEDS: amLODIPine BESYLATE 5 MG TAB PO SCH (10:19)
[2016-12-28] MEDS: METOPROLOL TARTRATE 25 MG TAB PO SCH ×2 (10:19→20:12)
[2016-12-28] MEDS: MEGESTROL ACETATE 40 MG TAB PO SCH ×2 (10:20→20:12)
[2016-12-28] MEDS: DONEPEZIL HCL 5 MG TAB PO SCH (10:21)
[2016-12-28] MEDS: PANTOPRAZOLE SOD 40 MG DELAYED RELEASE TAB PO SCH (10:31)
--- NOTE | 2016-12-28 11:55 | HHI.PR ---
Subjective Remarks Patient seen and examined today for follow-up on lung cancer, poor by mouth intake, hypercalcemia. The patient himself was not participating that well with conversation. He look at you and shrugging shoulders. Most information was discussed with at bedside. She had a plethora of questions about how long it takes for appetite stimulators to go into effect, if he needed a feeding tube if he can function on a normal basis. She is with a positive mindset that he is going to rebound from this as he has done so recently in the last year from other forms of cancer and brain aneurysms. I discussed with her possible palliative care evaluation. Patient states that she wants to think about it. Objective Vitals Vital Signs Date Time Temp Pulse Resp B/P (MAP) Pulse Ox O2 Delivery O2 Flow Rate FiO2 12/28/16 10:56 Room Air 12/28/16 09:15 88 18 149/87 (107) 94 12/28/16 04:27 65 122/76 (91) 12/28/16 00:10 97.3 72 12 112/88 (96) 93 12/27/16 20:00 Nasal Cannula 2.00 12/27/16 20:00 97.7 70 14 139/85 (103) 98 12/27/16 19:43 98 Nasal Cannula 2.00 12/27/16 16:00 97.1 98 18 157/73 (101) 99 12/27/16 12:00 97.7 95 17 112/70 (84) 95 12/27/16 12:00 99.8 98 18 116/78 (91) 95 I/O 12/27/16 12/27/16 12/27/16 12/28/16 12/28/16 12/28/16 07:00 15:00 23:00 07:00 15:00 23:00 Intake Total 620 ml 180 ml 548 ml Balance 620 ml 180 ml 548 ml Intake Oral 120 ml 180 ml IV Total 500 ml 548 ml # Voids 1 1 3 # Bowel Movements 1 2 1 Result Diagram: 12/25/16 0725 12/28/16 0859 Objective Remarks GENERAL: Well-developed, cachectic and frail, in no acute distress. Awake, was not speaking. But shrugging his shoulders HEENT: Head is normocephalic without any lesions or masses noted. Facial features are symmetric. Eyes: Extraocular muscles are intact. Conjunctivae were clear. NECK: Supple without any masses. Trachea midline no deviation. No JVD, CARDIAC: Regular rhythm, regular rate. S1/S2 are heard. No murmurs gallops or rubs. LUNGS: Clear to auscultation bilaterally. No wheeze, rhonchi or rales. No use of accessory muscles on inspiration or expiration. ABDOMEN: Soft, nontender. Nondistended. Bowel sounds heard in all 4 quadrants. No organomegaly or masses. Negative rebound, negative guarding EXTREMITIES: No edema, pulses are equal bilaterally. No cyanosis or clubbing NEUROLOGY: Mood and affect appear appropriate. Cranial nerves II through XII grossly intact. Moving all extremities, Urinary Catheter: No A/P Assessment and Plan Right lower lobe dense consolidation, postobstructive pneumonia; -Chest CT 12/20 showed a 6.8 cm lung mass with endobronchial component and surrounding consolidation and atelectasis with enlarged subcarinal and precarinal lymph nodes most consistent with a primary lung malignancy with mediastinal rachel metastasis. -CT biopsy performed which did indicate poorly differentiated squamous cell carcinoma -pulmonology following the patient. 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 Recommending PET CT scan in outpatient setting for further staging. -Patient and would benefit greatly from palliative care consult. is thinking about it. Will readdress tomorrow Hypercalcemia -Workup indicated below PTH, paraneoplastic PTHrp elevation -Oncologist recommended Aredia -Continue monitor calcium level Confusion - suspect hospital induced delirium, hypercalcemia - counseled that this could be expected more in the future Poor by mouth intake -Likely combination of patient's illnesses, cancer, dementia, medications -Megace started for appetite stimulant -Calorie count requested -Dietary consulted -Counseled extensively on possible need for food supplementation, possible feeding tube placement Intractable nausea and vomiting, followed by hematemesis. Resolved -Hemoglobin is stable -Stock Clerk was consulted for recommendations -Status post EGD \showing duodenitis, esophagitis, gastritis. -He does take Aleve and patient's was counseled he should avoid NSAIDs -Continue PPI constipation - likely 2/2 hypercalcemia, continue stool softeners; s/p barium enema Hypokalemia/Hypophosphatemia. -Continue K-Phos. Hypertension. Stable -Continue Norvasc. 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 Dementia. -Continue reorientation. DVT prevention -heparin Jasson Lock Dec 28, 2016 11:55
[2016-12-28] MEDS: DEXT 5%-NACL 0.45% 1000 ML INJ 1,000 ML IV SCH (14:09)
[2016-12-29] VITALS (9 sets, daily range): BP systolic 111–151; BP diastolic 59–87; PULSE 55–91; RESP 14–18; TEMP 96.7–98; O2SAT 92–98
[2016-12-29] MEDS: HEPARIN SODIUM - SQ 10,000 UNITS/ML VIAL SQ SCH ×3 (06:11→20:05)
[2016-12-29 06:49] LABS: AUTOMATED NEUTROPHIL # 5.7 TH/MM3 (1.8-7.7); BASOPHIL % 0.5 % (0.0-2.0); EOSINOPHIL # 0.2 TH/MM3 (0-0.4); EOSINOPHIL % 1.7 % (0.0-4.0); HEMATOCRIT 31.1 % (39.0-51.0); HEMOGLOBIN 9.9 GM/DL (13.0-17.0); LYMPH % 23.5 % (9.0-44.0); LYMPHOCYTE # 2.2 TH/MM3 (1.0-4.8); MEAN CELL VOLUME 85.7 FL (80.0-100.0); MEAN CORPUSCULAR HEMOGLOBIN 27.3 PG (27.0-34.0); MEAN CORPUSCULAR HGB CONC 31.8 % (32.0-36.0); MEAN PLATELET VOLUME 8.1 FL (7.0-11.0); MONO % 12.3 % (0.0-8.0); MONOCYTE # 1.1 TH/MM3 (0-0.9); PLATELET COUNT 277 TH/MM3 (150-450); RED BLOOD COUNT 3.63 MIL/MM3 (4.50-5.90); RED CELL DISTRIBUTION WIDTH 14.4 % (11.6-17.2); WHITE BLOOD COUNT 9.2 TH/MM3 (4.0-11.0)
[2016-12-29 07:12] LABS: CALCIUM 10.2 MG/DL (8.5-10.1)
[2016-12-29 07:13] LABS: BICARBONATE 24.3 MEQ/L (21.0-32.0); MAGNESIUM 1.9 MG/DL (1.5-2.5)
[2016-12-29 07:16] LABS: PHOSPHORUS 1.5 MG/DL (2.5-4.9)
[2016-12-29] MEDS: LACTULOSE SYRUP 20 GM/30 ML CUP PO SCH (09:00)
[2016-12-29] MEDS: POLYETHYLENE GLYCOL 17 GM PKG PO SCH (09:00)
[2016-12-29] MEDS: DONEPEZIL HCL 5 MG TAB PO SCH (09:07)
[2016-12-29] MEDS: CEFUROXIME AXETIL 500 MG TAB PO SCH ×2 (09:07→20:00)
[2016-12-29] MEDS: amLODIPine BESYLATE 5 MG TAB PO SCH (09:08)
[2016-12-29] MEDS: POTASSIUM PHOSPHATE MONOBASIC 500 MG TAB PO SCH ×2 (09:08→20:05)
[2016-12-29] MEDS: PANTOPRAZOLE SOD 40 MG DELAYED RELEASE TAB PO SCH (09:09)
[2016-12-29] MEDS: MEGESTROL ACETATE 40 MG TAB PO SCH ×2 (09:09→20:00)
[2016-12-29] MEDS: METOPROLOL TARTRATE 25 MG TAB PO SCH ×2 (09:09→20:00)
[2016-12-29] MEDS: POTASSIUM CHLORIDE 10 MEQ CONTROLLED RELEASE TAB PO SCH ×2 (09:09→20:00)
[2016-12-29] MEDS: MULTIVITAMIN TAB PO SCH (09:09)
[2016-12-29] MEDS: PRAVASTATIN SOD 20 MG TAB PO SCH (09:09)
[2016-12-29] MEDS: DOCUSATE SODIUM 100 MG CAP PO SCH ×2 (09:09→20:00)
[2016-12-29] MEDS: SODIUM CHLORIDE 0.9% FLUSH 10 ML FLUSH IV FLUSH SCH ×2 (09:10→20:05)
[2016-12-29] MEDS: HYDROCORTISONE ACETATE 25 MG SUPP RECTAL SCH ×2 (09:11→20:00)
[2016-12-29] MEDS: DEXT 5%-NACL 0.45% 1000 ML INJ 1,000 ML IV SCH (13:18)
--- NOTE | 2016-12-29 13:19 | HHI.PR ---
Subjective Remarks Patient seen and examined today for follow-up on multiple problems to include poor by mouth intake, newly diagnosed lung cancer, hypercalcemia. The patient denies morning and he was doing quite well. He was awake and alert. Eating breakfast. Indicated that he did not want to have a feeding tube. I counseled him extensively on the need to increase his food intake so he would not need to have a feeding tube. Went back and talked to the concerning the patient's care. Notified her of the patient's wishes of not to want a feeding tube. I discussed with her extensively the possibility of having a palliative care consult to obtain goals of care. Patient is adamant that she does not want to have a palliative care consult. However patient while in front of his stated that he does not and will not have a feeding tube. She indicates that they will fight about that later if he needs to have one. She indicates that she is not going to give up Objective Vitals Vital Signs Date Time Temp Pulse Resp B/P (MAP) Pulse Ox O2 Delivery O2 Flow Rate FiO2 12/29/16 09:21 Room Air 12/29/16 08:04 91 12/29/16 08:00 97.8 86 18 151/87 (108) 96 12/29/16 04:12 61 134/77 (96) 12/29/16 00:44 98.0 55 14 130/59 (82) 92 12/28/16 20:10 94 Room Air 12/28/16 20:08 98.0 80 12 136/59 (84) 94 12/28/16 20:05 95 21 12/28/16 19:30 87 12/28/16 18:37 97.0 98 16 127/67 (87) 96 12/28/16 16:00 87 12/28/16 14:53 97.4 77 18 119/65 (83) 96 I/O 12/28/16 12/28/16 12/28/16 12/29/16 12/29/16 12/29/16 07:00 15:00 23:00 07:00 15:00 23:00 Intake Total 548 ml 452 ml 1333 ml 417 ml Output Total 180 ml Balance 548 ml 452 ml 1333 ml 237 ml Intake Oral 770 ml IV Total 548 ml 452 ml 563 ml 417 ml Output Urine Total 180 ml # Voids 3 3 3 Result Diagram: 12/29/1637 12/29/16536 Objective Remarks GENERAL: Well-developed, cachectic and frail, in no acute distress. Awake, calm , alert HEENT: Head is normocephalic without any lesions or masses noted. Facial features are symmetric. Eyes: Extraocular muscles are intact. Conjunctivae were clear. NECK: Supple without any masses. Trachea midline no deviation. No JVD, CARDIAC: Regular rhythm, regular rate. S1/S2 are heard. No murmurs gallops or rubs. LUNGS: Clear to auscultation bilaterally. No wheeze, rhonchi or rales. No use of accessory muscles on inspiration or expiration. ABDOMEN: Soft, nontender. Nondistended. Bowel sounds heard in all 4 quadrants. No organomegaly or masses. Negative rebound, negative guarding EXTREMITIES: No edema, pulses are equal bilaterally. No cyanosis or clubbing NEUROLOGY: Mood and affect appear appropriate. Cranial nerves II through XII grossly intact. Moving all extremities, speech is clear Urinary Catheter: No Vascular Central Line Catheter: No A/P Assessment and Plan Right lower lobe dense consolidation, postobstructive pneumonia; -Chest CT 12/20 showed a 6.8 cm lung mass with endobronchial component and surrounding consolidation and atelectasis with enlarged subcarinal and precarinal lymph nodes most consistent with a primary lung malignancy with mediastinal rachel metastasis. -CT biopsy performed which did indicate poorly differentiated squamous cell carcinoma -pulmonology following the patient. 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 Recommending PET CT scan in outpatient setting for further staging. -Patient and would benefit greatly from palliative care consult. states that she does not and will not have a palliative care consult Hypercalcemia, improving -Workup indicated below PTH, paraneoplastic PTHrp elevation -Oncologist recommended Aredia -Continue monitor calcium level Confusion, improving - suspect hospital induced delirium, hypercalcemia - counseled that this could be expected more in the future Poor by mouth intake -Likely combination of patient's illnesses, cancer, dementia, medications -Megace started for appetite stimulant -Calorie count ongoing, should be finalized by Thursday -Dietary consulted -Counseled extensively on possible need for food supplementation, possible feeding tube placement -Patient made multiple mentions that he will not have a feeding tube Intractable nausea and vomiting, followed by hematemesis. Resolved -Hemoglobin is stable -Business Account Executive was consulted for recommendations -Status post EGD \showing duodenitis, esophagitis, gastritis. -He does take Aleve and patient's was counseled he should avoid NSAIDs -Continue PPI constipation - likely 2/2 hypercalcemia, continue stool softeners; s/p barium enema Hypokalemia/Hypophosphatemia. -Continue K-Phos. Hypertension. Stable -Continue Norvasc. 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 Dementia. -Continue reorientation. DVT prevention -heparin Jasson Lock Dec 29, 2016 13:19
--- NOTE | 2016-12-29 18:04 | PD.ONC.PN ---
Subjective Subjective Remarks Patient seen and examined, vital signs, medications and labs reviewed. Subjectively; the patient reports his appetite is improved (his reports the patient has eaten better yesterday and today). He feels more awake and alert and tells me he has been up out of bed and has ambulated with the assistance of physical therapy. He wants know when he will be well enough to leave the hospital. Objective Data Date Time Temp Pulse Resp B/P (MAP) Pulse Ox O2 Delivery O2 Flow Rate FiO2 12/29/16 16:00 98.0 71 16 111/68 (82) 98 12/29/16 13:28 95 12/29/16 12:00 98.0 82 16 138/60 (86) 95 12/29/16 09:21 Room Air 12/29/16 08:04 91 12/29/16 08:00 97.8 86 18 151/87 (108) 96 12/29/16 04:12 61 134/77 (96) 12/29/16 00:44 98.0 55 14 130/59 (82) 92 12/28/16 20:10 94 Room Air 12/28/16 20:08 98.0 80 12 136/59 (84) 94 12/28/16 20:05 95 21 12/28/16 19:30 87 12/28/16 18:37 97.0 98 16 127/67 (87) 96 12/29/16 12/29/16 12/29/16 07:00 15:00 23:00 Intake Total 417 ml 620 ml 297 ml Output Total 180 ml 150 ml Balance 237 ml 620 ml 147 ml Result Diagram: 12/29/16 0537 12/29/16 0537 Laboratory Results Laboratory Tests Test 12/29/16 05:37 White Blood Count 9.2 TH/MM3 Red Blood Count 3.63 MIL/MM3 Hemoglobin 9.9 GM/DL Hematocrit 31.1 % Mean Corpuscular Volume 85.7 FL Mean Corpuscular Hemoglobin 27.3 PG Mean Corpuscular Hemoglobin Concent 31.8 % Red Cell Distribution Width 14.4 % Platelet Count 277 TH/MM3 Mean Platelet Volume 8.1 FL Neutrophils (%) (Auto) 62.0 % Lymphocytes (%) (Auto) 23.5 % Monocytes (%) (Auto) 12.3 % Eosinophils (%) (Auto) 1.7 % Basophils (%) (Auto) 0.5 % Neutrophils # (Auto) 5.7 TH/MM3 Lymphocytes # (Auto) 2.2 TH/MM3 Monocytes # (Auto) 1.1 TH/MM3 Eosinophils # (Auto) 0.2 TH/MM3 Basophils # (Auto) 0.0 TH/MM3 CBC Comment DIFF FINAL Differential Comment Blood Urea Nitrogen 14 MG/DL Creatinine 1.00 MG/DL Random Glucose 83 MG/DL Calcium Level 10.2 MG/DL Phosphorus Level 1.5 MG/DL Magnesium Level 1.9 MG/DL Sodium Level 139 MEQ/L Potassium Level 3.8 MEQ/L Chloride Level 105 MEQ/L Carbon Dioxide Level 24.3 MEQ/L Anion Gap 10 MEQ/L Estimat Glomerular Filtration Rate 71 ML/MIN Administered Medications Medications (Trade) Dose Ordered Sig/Ehsan Route PRN Reason Start Time Stop Time Status Last Admin Dose Admin Sodium Chloride (NS Flush) 2 ml BID IV FLUSH 12/18/16 09:00 12/29/16 09:10 Amlodipine Besylate (Norvasc) 5 mg DAILY PO 12/18/16 18:15 12/29/16 09:08 Multivitamins (Theragran) 1 tab DAILY PO 12/18/16 18:30 12/29/16 09:09 Pravastatin Sodium (Pravachol) 20 mg DAILY PO 12/18/16 18:30 12/29/16 09:09 Docusate Sodium (Colace) 100 mg BID PO 12/19/16 23:15 12/29/16 09:09 Potassium Phosphate (K-Phos) 1,000 mg Q12HR PO 12/21/16 13:00 12/29/16 09:08 Pantoprazole Sodium (Protonix) 40 mg DAILY PO 12/21/16 13:00 12/29/16 09:09 Simethicone (Mylicon Chew) 80 mg PCHS PRN CHEW gas 12/21/16 13:15 12/22/16 08:41 Potassium Chloride (KCl) 20 meq Q12HR PO 12/21/16 21:00 12/29/16 09:09 Metoprolol Tartrate (Lopressor) 25 mg Q12HR PO 12/23/16 09:00 12/29/16 09:09 Cefuroxime Axetil (Ceftin) 500 mg Q12HR PO 12/23/16 09:00 01/02/17 08:59 12/29/16 09:07 Tramadol HCl (Ultram) 50 mg Q8H PRN PO pain 6-10 12/24/16 17:45 12/29/16 06:18 Heparin Sodium (Porcine) (Heparin Inj) 5,000 units Q8HR SQ 12/24/16 22:00 12/29/16 13:20 Hydrocortisone Acetate (Hemorrhoidal Hc Supp) 25 mg BID RECTAL 12/25/16 21:00 12/29/16 09:11 Lactulose (Lactulose Liq) 30 ml DAILY PO 12/26/16 09:00 12/27/16 09:17 Polyethylene Glycol (Miralax) 17 gm DAILY PO 12/25/16 18:30 12/29/16 09:00 Donepezil HCl (Aricept) 10 mg DAILY PO 12/26/16 15:00 12/29/16 09:07 Megestrol Acetate (Megace) 40 mg BID PO 12/27/16 15:00 12/29/16 09:09 Dextrose/Sodium Chloride 1,000 ml @ 42 mls/hr [id number] IV 12/27/16 14:15 12/29/16 13:18 Objective Remarks GENERAL APPEARANCE: Mr. Jordan is an elderly male. he is laying in bed. He is awake and alert. His is at bedside. He looks to his for assistance with some of the questions I ask. HEENT: Head atraumatic, normocephalic, conjunctivae are pale, sclerae are anicteric, EOMI, PERRLA, oral exam no pharyngeal erythema. NECK: No palpable cervical or supraclavicular lymphadenopathy. RESPIRATORY: Good air movement bilaterally. No added breath sounds. CARDIOVASCULAR: Regular rate and rhythm, S1-S2. No obvious murmurs, rubs or gallops. ABDOMEN: Thin belly, soft and nontender, nondistended. No palpable organ enlargement. LOWER EXTREMITIES: No pretibial edema or calf tenderness. SKIN: Appears to be generally dry. Assessment/Plan Assessment Mr. Jordan is an 81-year-old male with an extensive past history of tobaccoism. 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 This was treated with single modality radiation because it was a stage I tumor. He had been routinely following up with Dr. Grimaldo of radiation oncology and had been in remission, as evidenced by clinical exam and direct visualization of the upper aerodigestive tract. Over the past few weeks, he had been increasingly fatigued. He had increasing nausea and vomiting and had been progressively confused. His brought him into the emergency department for further workup and management. He underwent a GI workup because he was found to be anemic and there were endoscopic findings of gastritis and also a colonoscopy revealed a rectal ulcer. Imaging studies of the thorax, however, revealed a 7 cm mass involving the right lower lobe of the lung. There appeared to be an endobronchial component and there was also evidence of mediastinal lymph node involvement. Image guided biopsy of the right lung mass revealed findings consistent with poorly differentiated squamous cell carcinoma. Given the distribution of the tumor and the lymph nodes, it appears this is most consistent with a primary lung malignancy as opposed to metastatic disease from his laryngeal squamous cell carcinoma. The oncology service has been asked to see him for further workup and management of both his malignancy as well as underlying hypercalcemia of malignancy as well. Plan 1. Squamous cell carcinoma of the right lower lobe of the lung associated with mediastinal and hilar lymph node enlargement: I will see him in follow-up in the outpatient clinic with systemic staging studies to assess for mediastinal lymph node involvement and distal metastases. He is a borderline candidate for aggressive disease directed therapy, however with optimization of his hypercalcemia malignancy and improve nutrition I'm hopeful that he may be able to tolerate some form of palliative treatment. 2. Hypercalcemia of malignancy; status post pamidronate infusion on 12/26/2016 with improvement of his calcium levels. Continue IV fluid hydration. 3. Patient's request if the patient does require inpatient rehabilitation that he be evaluated for [facility] rehabilitation at [place]. Jose Alfredo Arreaga MD Dec 29, 2016 18:04
[2016-12-30] VITALS: BP 117/66; PULSE 62; RESP 18; TEMP 97.6; O2SAT 95
[2016-12-30] MEDS: HEPARIN SODIUM - SQ 10,000 UNITS/ML VIAL SQ SCH (04:56)
[2016-12-30 05:33] VITALS: RESP 16
[2016-12-30 06:54] LABS: CALCIUM 9.4 MG/DL (8.5-10.1)
[2016-12-30 06:55] LABS: BICARBONATE 24.4 MEQ/L (21.0-32.0)
[2016-12-30 06:58] LABS: CREATININE 0.96 MG/DL (0.60-1.30); PHOSPHORUS 1.8 MG/DL (2.5-4.9)
[2016-12-30 08:00] VITALS: BP 130/62; PULSE 91; RESP 20; TEMP 98.4; O2SAT 93
[2016-12-30] MEDS: POTASSIUM PHOSPHATE MONOBASIC 500 MG TAB PO SCH (09:00)
[2016-12-30] MEDS: LACTULOSE SYRUP 20 GM/30 ML CUP PO SCH (09:00)
[2016-12-30] MEDS: SODIUM CHLORIDE 0.9% FLUSH 10 ML FLUSH IV FLUSH SCH (09:00)
[2016-12-30] MEDS: POLYETHYLENE GLYCOL 17 GM PKG PO SCH (09:00)
--- NOTE | 2016-12-30 11:41 | HHI.FF ---
Face to Face Verification Diagnosis: (1) Dementia (2) Mass of right lung Physical Therapy Order: Evaluate and Treat, Improve ambulation, Strength and gait training Occupational Therapy Order: Evaluate and Treat, Gross motor coordination, Fine motor coordination Home Health Nursing Order: Medical education Signs/symptoms of disease process Medication education-adverse effect I have seen patient Joseph Jordan on 12/30/16. My clinical findings support the need for the requested home health care services because: Patient has SOB Deconditioned w/ increased weakness Med compliance is questionable I certify that my clinical findings support that this patient is homebound because: Impaired cognitive ability/safety Alana Khan MD Dec 30, 2016 11:41
[2016-12-30] MEDS ORDERED: DOCU1CAP39 PO (11:50)
[2016-12-30] MEDS ORDERED: ARIC5TAB2 PO (11:50)
[2016-12-30] MEDS ORDERED: PANT40TA3 PO (11:50)
[2016-12-30] MEDS ORDERED: CEFU1TAB20 PO (11:50)
[2016-12-30] MEDS ORDERED: MEGE40TA PO (11:50)
--- NOTE | 2016-12-30 11:54 | HHI.DS ---
cc: Riki Cavazos MD Discharge Summary Admission Date Dec 17, 2016 at 23:03 Discharge Date: Dec 30, 2016 Admitting Diagnosis PNA and hypercalcemia (1) Pneumonia ICD Code: J18.9 - Pneumonia, unspecified organism Status: Acute (2) Hematemesis ICD Code: K92.0 - Hematemesis (3) Intractable nausea and vomiting ICD Code: R11.2 - Nausea with vomiting, unspecified (4) Hypokalemia ICD Code: E87.6 - Hypokalemia (5) Acute kidney injury ICD Code: N17.9 - Acute kidney failure, unspecified Status: Acute (6) UTI (urinary tract infection) ICD Code: N39.0 - Urinary tract infection, site not specified Status: Acute (7) Hypercalcemia ICD Code: E83.52 - Hypercalcemia Status: Acute (8) Mass of right lung ICD Code: R91.8 - Other nonspecific abnormal finding of lung field Procedures EGD: Duodenitis, esophagitis, gastritis Brief History - From Admission Poor historian. Does not like to speak much although he seems cognitively intact. 81 y/o WM admitted for PNA. Patient was in his usual state of health presumptively until yesterday at which point his progressive generalized weakness worsened prompting him to come to the emergency room. He has chronic intermittent N/V to which he does not elaborate further but does admit to new onset hematemesis yesterday. Says that he does vomit on a good day, reports that he felt substantially weaker overall yesterday and had noted some mild hematemesis, eventually decided come to the emergency room. Denies having any increased shortness of breath fevers chills. Chest x-ray which I independent only reviewed shows a prominent infiltrate in the right middle lobe which is suggestive of pneumonia. Has hypercalcemia noted. CBC/BMP: 12/29/16 0537 12/30/16 0527 Significant Findings Laboratory Tests Test 12/28/16 08:59 12/29/16 05:37 12/30/16 05:27 Calcium Level 10.9 MG/DL (8.5-10.1) 10.2 MG/DL (8.5-10.1) Estimat Glomerular Filtration Rate 58 ML/MIN (>89) 71 ML/MIN (>89) 75 ML/MIN (>89) Red Blood Count 3.63 MIL/MM3 (4.50-5.90) Hemoglobin 9.9 GM/DL (13.0-17.0) Hematocrit 31.1 % (39.0-51.0) Mean Corpuscular Hemoglobin Concent 31.8 % (32.0-36.0) Monocytes (%) (Auto) 12.3 % (0.0-8.0) Monocytes # (Auto) 1.1 TH/MM3 (0-0.9) Phosphorus Level 1.5 MG/DL (2.5-4.9) 1.8 MG/DL (2.5-4.9) Imaging Last Impressions Myocardial Perfusion Scan Nuc Med 12/25/16599 Signed Impressions: Service Date/Time: November 12:28 - CONCLUSION: 1. No evidence of stress-induced ischemia. 2. Intact wall motion with calculated ejection fraction greater than 70%%. RISK CATEGORY: Low (<1%% Annual Mortality Rate) Anthony Zepeda MD Enema w/Water Soluble 12/25/16 0000 Signed Impressions: Service Date/Time: November 08:09 - CONCLUSION: Limited Gastrografin enema. An obstructing lesion was not seen. There is stool seen throughout the colon. There was a diverticulum in the sigmoid region. Roland Ferrell MD Lung Biopsy CT 12/23/16 06 Signed Impressions: Service Date/Time: Friday, December 23, 2016 09:07 - CONCLUSION: Uncomplicated CT guided biopsy. Piter Chakraborty MD Chest X-Ray 12/23/16 0000 Signed Impressions: Service Date/Time: Friday, December 23, 2016 09:40 - CONCLUSION: No evidence of pneumothorax. Anthony Zepeda MD Chest CT 12/20/16 0000 Signed Impressions: Service Date/Time: Tuesday, December 20, 2016 14:58 - CONCLUSION: 1. 6.8 cm mass in right lower lobe with endobronchial component and surrounding consolidation and atelectasis. Enlarged subcarinal and precarinal lymph nodes. Findings are most characteristic of a primary lung malignancy with mediastinal rachel metastasis. No effusions. Mass would be amenable to transthoracic needle biopsy. Gary Nolasco MD Abdomen/Pelvis CT 12/17/[id number] Signed Impressions: Service Date/Time: Saturday, December 17, 2016 21:28 - CONCLUSION: There is a dense right lower lobe parenchymal consolidated infiltrate. Interrum endovascular stent abdominal aortic repair infrarenal extending into the common iliac arteries. No evidence of leak. Other chronic findings as described above.. Ernesto Ramos MD PE at Discharge GENERAL: Well-developed, cachectic and frail, in no acute distress. Awake, calm , alert HEENT: Head is normocephalic without any lesions or masses noted. Facial features are symmetric. Eyes: Extraocular muscles are intact. Conjunctivae were clear. NECK: Supple without any masses. Trachea midline no deviation. No JVD, CARDIAC: Regular rhythm, regular rate. S1/S2 are heard. No murmurs gallops or rubs. LUNGS: Clear to auscultation bilaterally. No wheeze, rhonchi or rales. No use of accessory muscles on inspiration or expiration. ABDOMEN: Soft, nontender. Nondistended. Bowel sounds heard in all 4 quadrants. No organomegaly or masses. Negative rebound, negative guarding EXTREMITIES: No edema, pulses are equal bilaterally. No cyanosis or clubbing NEUROLOGY: Mood and affect appear appropriate. Cranial nerves II through XII grossly intact. Moving all extremities, speech is clear Pt update on day of discharge patient seen today in follow-up for anorexia, postobstructive pneumonia with new diagnosis of squamous cell carcinoma. Patient also with hypercalcemia which is improved. Care plan discussed with family and patient as well as nursing team. Discharge plans discussed with patient today Hospital Course Patient is a 81 year-old gentleman who came to the hospital with weakness and signs and symptoms of pneumonia. Patient was found to have a postobstructive pneumonia with evidence of squamous cell carcinoma on biopsy. Patient also was seen by oncology. Outpatient PET scan as well as further evaluation for palliative treatment were discussed. Patient did refuse palliative care consult given the patient's frailty this was thought appropriate. Patient was treated for hypercalcemia, confusion and for nausea and vomiting. Patient did have some hematemesis and an endoscopy did show duodenitis, esophagitis and gastritis which is likely due to patient's NSAID use. He did have poor oral intake as well. He had improvement of his oral intake. No plan for feeding tube was agreed upon by the patient or the family and the calorie counts was discontinued. Blood pressure remained stable. He had a barium enema as well as stool softeners for calcium thought related to hypercalcemia. Patient was discharged with home health care Pt Condition on Discharge: Good Discharge Disposition: Disch w/ Home Health Serv Discharge Time: > 30 minutes Discharge Instructions DIET: Follow Instructions for: As Tolerated, No Restrictions Activities you can perform: Regular-No Restrictions Follow up Referrals: PCP Follow-up - 1 Week New Medications: Cefuroxime (Cefuroxime) 500 Mg Tab 500 MG PO Q12HR for Infection, #8 TAB Docusate Sodium (Dok) 100 Mg Cap 100 MG PO BID for Constipation, #62 CAP Donepezil HCl (Aricept) 5 Mg Tablet 10 MG PO DAILY for dementia, #30 TAB Megestrol (Megestrol) 40 Mg Tab 40 MG PO BID for apppetite, #60 TAB Pantoprazole (Pantoprazole) 40 Mg Tab 40 MG PO DAILY for gastritis, #31 TAB Continued Medications: Amlodipine (Amlodipine) 5 Mg Tab 5 MG PO DAILY for Blood Pressure Management, #30 TAB [address] (Aspirin EC) 81 Mg Tabdr 81 MG PO DAILY, TAB 0 Refills Cholecalciferol (Vitamin D-1000) 1,000 Unit Tab 1000 UNITS PO DAILY for Nutritional Supplement, #1 BOTTLE 0 Refills Ferrous Sulfate ER (Slow Release Iron ER) 168 Mg (50 Mg Iron) Tab 50 MG PO DAILY for Nutritional Supplement, TAB 0 Refills Multiple Vitamin (Multiple Vitamin) 1 Tab 1 TAB PO DAILY for Nutritional Supplement, TAB 0 Refills Sennosides-Docusate Sodium (Senna-Plus) 8.6-50 Mg Tab 1 TAB PO DAILY for Constipation, TAB 0 Refills Simvastatin (Simvastatin) 10 Mg Tab 10 MG PO DAILY for Cholesterol Management, #30 TAB 0 Refills Alana Khan MD Dec 30, 2016 11:54
[2016-12-30] MEDS ORDERED: WHEEMIS3 (11:57)
[2016-12-30 12:00] VITALS: BP 125/62; PULSE 92; RESP 20; TEMP 96.5; O2SAT 92
[2016-12-30] MEDS: POTASSIUM CHLORIDE 10 MEQ CONTROLLED RELEASE TAB PO SCH (12:13)
[2016-12-30] MEDS: CEFUROXIME AXETIL 500 MG TAB PO SCH (12:13)
[2016-12-30] MEDS: MULTIVITAMIN TAB PO SCH (12:13)
[2016-12-30] MEDS: PRAVASTATIN SOD 20 MG TAB PO SCH (12:14)
[2016-12-30] MEDS: DOCUSATE SODIUM 100 MG CAP PO SCH (12:14)
[2016-12-30] MEDS: amLODIPine BESYLATE 5 MG TAB PO SCH (12:14)
[2016-12-30] MEDS: DONEPEZIL HCL 5 MG TAB PO SCH (12:14)
[2016-12-30] MEDS: MEGESTROL ACETATE 40 MG TAB PO SCH (12:14)
[2016-12-30] MEDS: PANTOPRAZOLE SOD 40 MG DELAYED RELEASE TAB PO SCH (12:14)
[2016-12-30] MEDS: METOPROLOL TARTRATE 25 MG TAB PO SCH (12:14)
[2016-12-30] MEDS: HYDROCORTISONE ACETATE 25 MG SUPP RECTAL SCH (12:15)
== END 2016-12-30 14:37 | disposition home health service (06) | DRG 180 ==
LOC: PHED 15:52 → PHEDA 23:03 → PH3A 12-18 00:40 → PH3B 12-19 00:50
PROVIDERS: ADMIT Hospitalist; ATTEND Hospitalist
PROC: 0DB98ZX Excision of Duodenum, Via Natural or Artificial Opening Endoscopic, Diagnostic (ICD-10-PCS; 2016-12-19)
PROC: 0DB78ZX Excision of Stomach, Pylorus, Via Natural or Artificial Opening Endoscopic, Diagnostic (ICD-10-PCS; 2016-12-19)
PROC: 0DB38ZX Excision of Lower Esophagus, Via Natural or Artificial Opening Endoscopic, Diagnostic (ICD-10-PCS; 2016-12-19)
PROC: 0BBF3ZX Excision of Right Lower Lung Lobe, Percutaneous Approach, Diagnostic (ICD-10-PCS; principal; 2016-12-23)
PROC: 0DBP8ZX Excision of Rectum, Via Natural or Artificial Opening Endoscopic, Diagnostic (ICD-10-PCS; 2016-12-24)
PROC: 0DCP8ZZ Extirpation of Matter from Rectum, Via Natural or Artificial Opening Endoscopic (ICD-10-PCS; 2016-12-24)
DX: C34.31 Malignant neoplasm of lower lobe, right bronchus or lung (principal); J18.9 Pneumonia, unspecified organism; N17.9 Acute kidney failure, unspecified; I47.2 Ventricular tachycardia; K92.0 Hematemesis; C77.1 Secondary and unspecified malignant neoplasm of intrathoracic lymph nodes; F03.90 Unspecified dementia, unspecified severity, without behavioral disturbance, psychotic disturbance, mood disturbance, and anxiety; E86.0 Dehydration; F05 Delirium due to known physiological condition; K62.6 Ulcer of anus and rectum; N30.00 Acute cystitis without hematuria; J98.11 Atelectasis; E83.39 Other disorders of phosphorus metabolism; D64.9 Anemia, unspecified; E83.52 Hypercalcemia; Z96.652 Presence of left artificial knee joint; I10 Essential (primary) hypertension; E78.5 Hyperlipidemia, unspecified; K20.9 Esophagitis, unspecified; K29.70 Gastritis, unspecified, without bleeding; K29.80 Duodenitis without bleeding; K56.41 Fecal impaction; E87.6 Hypokalemia; K44.9 Diaphragmatic hernia without obstruction or gangrene; W18.30XA Fall on same level, unspecified, initial encounter; Y92.230 Patient room in hospital as the place of occurrence of the external cause; R63.4 Abnormal weight loss; Z92.21 Personal history of antineoplastic chemotherapy; Z92.3 Personal history of irradiation; Z87.891 Personal history of nicotine dependence; Z86.79 Personal history of other diseases of the circulatory system; Z85.820 Personal history of malignant melanoma of skin; Z86.73 Personal history of transient ischemic attack (TIA), and cerebral infarction without residual deficits; Z85.21 Personal history of malignant neoplasm of larynx
CPT/HCPCS: 32405; 71010; 71260; 74176; 74270; 76937; 77012; 78452; 80048; 80053; 81001; 82040; 82306; 82330; 82397; 82652; 83690; 83735; 83970; 84100; 84155; 84443; 84590; 85025; 85610; 85730; 87086; 88305; 88312; 88341; 88342; 93005; 93017; 93306; 96361; 96365; 96375; A9502; J0456; J0696; J1644; J1650; J2212; J2250; J2405; J2430; J2785; J3010; J3480; J7030; J7040; J7050; Q9963; Q9967